=== PATIENT | male | born 1990 | race African-American/Black ===

== ENCOUNTER 2022-11-08 06:51 | Outpatient (OUT) | payer OTHER, SELFPAY ==
[2022-11-08 08:32] LABS: Estimated Average Glucose 189 mg/dL; Glycohemoglobin A1C 8.2 % (4.5-6.2)
[2022-11-08 08:37] LABS: Chol HDL Ratio 3.8; Cholesterol 143 mg/dL (<=200); HDL Cholesterol 38 mg/dL (40-60); Triglycerides 174 mg/dL (<=150); VLDL CHOLESTEROL 34.8 mg/dL
== END 2022-11-08 06:52 | disposition home or self-care (01) ==
LOC: LAB 06:55
PROVIDERS: PCP Internal Medicine; Visit Provider Internal Medicine
DX: E11.9 Type 2 diabetes mellitus without complications (principal); E78.5 Hyperlipidemia, unspecified
CPT/HCPCS: 36415; 80061; 83036

== ENCOUNTER 2023-03-05 08:20 | Emergency (ER) | payer OTHER, SELFPAY ==
[2023-03-05 08:28] VITALS: BP 125/84; PULSE 89; RESP 18; TEMP 36.7; O2SAT 99; BMI 30.7
--- NOTE | 2023-03-05 08:30 | XR_ITS ---
The [address] [address] Patient Name: MARCUS EASON MRN: [id number] date: 1990 Sex: M Assigned Patient Location: ER Current Patient Location: ER Accession/Order Number: [id number] Exam Date: 03/05/2023 08:38 Report Date: 03/05/2023 09:13 At the request of: VICKIE BARRIOS Procedure: XR wrist RT min 3V PROCEDURE: XR wrist RT min 3V COMPARISON: None. HISTORY: pain FINDINGS: BONES:Contour deformity of the distal ulna likely represents remote healed fracture resulting in a borderline ulnar minus variant. No acute fracture, dislocation or degenerative changes. SOFT TISSUES:Negative. No visible soft tissue swelling. EFFUSION:None visible. OTHER: Negative. XR/XR wrist RT min 3V IMPRESSION: No acute radiographic abnormality Electronically authenticated by: JAMES BOWERS Date: 03/05/2023 09:13
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
== END 2023-03-05 09:36 | disposition home or self-care (01) ==
PROVIDERS: Emergency Provider Emergency Medicine Emergency Medical Services; PCP Internal Medicine
DX: S63.501A Unspecified sprain of right wrist, initial encounter (principal); S66.911A Strain of unspecified muscle, fascia and tendon at wrist and hand level, right hand, initial encounter; V28.49XA Other motorcycle driver injured in noncollision transport accident in traffic accident, initial encounter
CPT/HCPCS: 73110; 99283

== ENCOUNTER 2023-04-01 07:20 | Emergency (ER) | payer OTHER, SELFPAY ==
[2023-04-01 07:23] VITALS: BP 140/88; PULSE 112; RESP 16; TEMP 37.6; O2SAT 98; BMI 31.6
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
--- NOTE | 2023-04-01 07:48 | XR_ITS ---
The [place] [id number] Patient Name: MARCUS EASON MRN: [id number] date: 1990 Sex: M Assigned Patient Location: ER Current Patient Location: ER Accession/Order Number: [id number] Exam Date: 04/01/2023 07:44 Report Date: 04/01/2023 08:04 At the request of: KETURAH RAMEY Procedure: XR soft tissue neck EXAMINATION: XR soft tissue neck HISTORY: FB sensation, left side ; feels like something stuck in throat COMPARISON: No relevant comparison available. FINDINGS: EPIGLOTTIS: Normal ARYEPIGLOTTIC FOLDS: Normal SUBGLOTTIC AIRWAY: Normal ADENOID TONSILS: Normal PALATINE TONSILS: Normal CERVICAL SPINE: Normal XR/XR soft tissue neck IMPRESSION: 1. No radiopaque foreign body. 2. No abnormal or suspicious findings to account for patient's symptoms. Electronically authenticated by: BLAZE RAMIREZ Date: 04/01/2023 08:04
== END 2023-04-01 08:29 | disposition home or self-care (01) ==
PROVIDERS: Emergency Provider Emergency Medicine; PCP Internal Medicine
DX: R09.A2 Foreign body sensation, throat (principal); Z79.84 Long term (current) use of oral hypoglycemic drugs
CPT/HCPCS: 70360; 99283

== ENCOUNTER 2023-04-05 15:34 | Outpatient (OUT) | payer OTHER, SELFPAY ==
--- NOTE | 2023-04-05 15:38 | XR_ITS ---
The [address] [address] Patient Name: MARCUS EASON MRN: [id number] date: 1990 Sex: M Assigned Patient Location: RAD Current Patient Location: Accession/Order Number: [id number] Exam Date: 04/05/2023 15:45 Report Date: 04/07/2023 23:08 At the request of: SHAIKH JEREMIAH Procedure: XR foot LT min 3V PROCEDURE: XR foot LT min 3V HISTORY: Left Foot Pain M79.672 ; medial arch pain COMPARISON: None. FINDINGS: BONES:No fracture, acute abnormality, or significant arthropathy. Tiny calcaneal plantar spur. SOFT TISSUES:No visible soft tissue swelling. EFFUSION:None visible. OTHER: Negative. XR/XR foot LT min 3V IMPRESSION: 1. No acute abnormality or significant degenerative changes. Electronically authenticated by: BLAZE RAMIREZ Date: 04/07/2023 23:08
--- NOTE | 2023-04-05 15:38 | XR_ITS ---
The [place] [id number] Patient Name: MARCUS EASON MRN: [id number] date: 1990 Sex: M Assigned Patient Location: RAD Current Patient Location: [facility] Accession/Order Number: [id number] Exam Date: 04/05/2023 15:45 Report Date: 04/08/2023 02:01 At the request of: SHAIKH JEREMIAH Procedure: XR wrist RT min 3V PROCEDURE: XR wrist RT min 3V HISTORY: Right Wrist Pain M25.531 COMPARISON: XR wrist right 03/05/2023 FINDINGS: BONES:No acute fracture or dislocation. Chronic, likely post traumatic changes of the distal ulna. Stable tiny round ossifications anterior to the proximal radial carpal joint, likely sequela of remote injury. SOFT TISSUES:No visible soft tissue swelling. EFFUSION:None visible. OTHER: Negative. XR/XR wrist RT min 3V IMPRESSION: 1. No acute bone abnormality. Stable wrist. Electronically authenticated by: BLAZE RAMIREZ Date: 04/08/2023 02:01
== END 2023-04-05 15:35 | disposition home or self-care (01) ==
LOC: RAD 15:34
PROVIDERS: PCP Internal Medicine; Visit Provider Internal Medicine
DX: M25.531 Pain in right wrist (principal); M79.672 Pain in left foot
CPT/HCPCS: 73110; 73630

== ENCOUNTER 2024-08-08 11:00 | Outpatient (OUT) | payer OTHER, SELFPAY ==
--- NOTE | 2024-08-08 | US_ITS ---
The [address] [address] Patient Name: MARCUS EASON MRN: [id number] date: 1990 Sex: M Assigned Patient Location: Current Patient Location: Accession/Order Number: [id number] Exam Date: 08/10/2024 09:43 Report Date: 08/10/2024 09:45 At the request of: JESUS BARRY NP Procedure: US scrotum SCROTAL ULTRASOUND WITH DUPLEX IMAGING CLINICAL DATA: Left testicular pain intermittently for the past few months. No injury. COMPARISON: None The right testis measures 4.8 x 3.4 x 1.6 cm . The left testis measures 4.5 x 3.2 x 2.0 cm. There is normal echogenicity. No intratesticular masses are identified. There is documentation of bilateral duplex and color Doppler testicular blood flow. The epididymal heads are similar in size. No hydrocele is seen. There are prominent vessels adjacent to the left testis with increased blood flow on Valsalva that may be varicocele. US/US scrotum IMPRESSION: NO INTRATESTICULAR MASS OR TORSION. SUSPECTED LEFT VARICOCELE. Impression dictated by: Erica Torres M.D.08/10/2024 9:45 AM Dictation Location: [place] [address] Electronically authenticated by: [id number] Y Date: 08/10/2024 09:45
--- OUTSIDE RECORDS SUMMARY | 2024-08-08 11:03 | XMS_ITS | CCD ---
Author Organization [facility] Care Team Providers Care Bioinformatics Support Specialist Name Role Phone FAWWAD, OCONNOR H Admitting Unavailable FAWWAD, OCONNOR H Attending Unavailable REQUEST, NONE LISTED Primary Care Unavaila ble FAWWAD, OCONNOR H Admitting Unavailable FAWWAD, OCONNOR H Attending Unavailable REQUEST, DR NONE LISTED Primary Care Unavaila ble FAWWAD, OCONNOR H Consulting Unavailable FAWWAD, OCONNOR H Admitting Unavailable FAWWAD, OCONNOR H Attending Unavailable FAWWAD, OCONNOR H Primary Care Unavailable FAWWAD, OCONNOR H Consulting Unavailable FAWWAD, OCONNOR H Admitting Unavailable FAWWAD, OCONNOR H Attending Unavailable FAWWAD, OCONNOR H Primary Care Unavailable FAWWAD, OCONNOR H Consulting Unavailable FAWWAD, OCONNOR H Admitting Unavailable FAWWAD, OCONNOR H Attending Unavailable FAWWAD, OCONNOR H Primary Care Unavailable FAWWAD, OCONNOR H Consulting Unavailable FAWWAD, OCONNOR H Primary Care Unavailable KETURAH RAMEY Admitting Unavailable KETURAH RAMEY Attending Unavailable KETURAH RAMEY Consulting Unavailable FAWWAD, OCONNOR H Primary Care Unavailable TORIE DORMAN Admitting Unavailable TORIE DORMAN Attending Unavailable TORIE DORMAN Consulting Unavailable REQUEST, NONE LISTED Primary Care Unavailbaljit DALTON, DR MARIANA Dior Consulting Unavailable SAMSA, MARIANELA Admitting Unavailable SAMSA, MARIANELA Attending Unavailable DR JOHN GAR Consulting Unavailable NILL, DR GOMEZ Consulting Unavailable SAMSA, MARIANELA Consulting Unavailable AGUBOSIM, MEME Consulting Unavailable DELL BACH Consulting Unavailable ELISEO BUTLER Consulting Unavailable John Gar MD Primary Care Provider [phone] Jeffery SILVICULTURE TEACHER, Ruby Unavailable [phone] Jeffery SILVICULTURE TEACHER, Ruby Unavailable RUBY GIL Attending Unavailabl e CATHERINE RICARDO Attending Unavailable Medications Current Medications Medication Drug Class(es) Dates Sig (Normalized) Sig (Original) carbamide peroxide 65 mg/ml otic solution (2 sources) Start: 01-13-2024 End: 01-17-2024 carbamide peroxide (Debrox) 6.5 % otic solution Indications: Cerumen debris on tympanic membrane of both ears Administer 3-5 drops into affected ear(s) in the morning and 3-5 drops before bedtime. Do all this for 4 days. 15 mL 01/13/2024 01/17/2024 Active glipiZIDE 5 mg oral tablet (11 sources) Sulfonylurea Start: 04-30-2023 End: 01-31-2025 take 1 tablet by mouth in the morning glipiZIDE (Glucotrol) 5 MG tablet Indications: Type 2 diabetes mellitus without complication, without long-term current use of insulin Take 1 tablet (5 mg) by mouth in the morning and 1 tablet (5 mg) in the evening. Take before meals. 180 tablet 08/04/2024 01/31/2025 Active metFORMIN hydrochloride 1000 mg oral tablet (11 sources) Biguanide Start: 05-01-2023 End: 01-31-2025 take 1 tablet by mouth in the morning metFORMIN (Glucophage) 1000 MG tablet Indications: Type 2 diabetes mellitus without complication, without long-term current use of insulin Take 1 tablet (1,000 mg) by mouth in the morning and 1 tablet (1,000 mg) in the evening. Take with meals. 180 tablet 08/04/2024 01/31/2025 Active Problems Active Problems Problem Classification Problem Date Documented Date Episodic/Chronic Acute and chronic tonsillitis (8 sources) Enlarged tonsil; Translations: [Hypertrophy of tonsils] Onset: 04-02-2023 04-02-2023 Chronic Acute and chronic tonsillitis (1 source) Acute tonsillitis, unspecified; Translations: [ACUTE TONSILLITIS UNSPECIFIED] Onset: 03-26-2022 Episodic Diabetes mellitus with complications (4 sources) Type 1 diabetes mellitus with other specified complication; Translations: [TYPE 1 DM W/OTHER SPEC COMPLICATION] Onset: 07-20-2021 Chronic Diabetes mellitus without complication (20 sources) Type 2 diabetes mellitus without complications; Translations: [Type 2 diabetes mellitus without complication] Onset: 07-14-2021 Chronic Disorders of lipid metabolism (8 sources) Mixed hyperlipidemia; Translations: [Mixed hyperlipidemia] Onset: 04-02-2023 04-02-2023 Chronic Noninfectious gastroenteritis (4 sources) Noninfective gastroenteritis and colitis, unspecified; Translations: [NONINFECTIVE GE AND COLITIS UNS] Onset: 01-10-2022 Episodic Other aftercare (1 source) Other long-term (current) drug therapy; Translations: [OTH FPC CURRENT DRUG THERAPY] Onset: 03-19-2022 Episodic Other aftercare (1 source) 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; Translations: [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 DX] Onset: 03-19-2022 Episodic Other connective tissue disease (5 sources) Pain in left lower limb; Translations: [Pain in left leg] Onset: 08-04-2024 08-04-2024 Episodic Other ear and sense organ disorders (2 sources) Excessive cerumen in ear canal ; Translations: [Impacted cerumen, bilateral] 01-13-2024 Episodic Other upper respiratory infections (4 sources) Acute pharyngitis, unspecified; Translations: [ACUTE PHARYNGITIS UNSPECIFIED] Onset: 03-19-2022 Episodic Screening and history of mental health and substance abuse codes (1 source) Personal history of nicotine dependence; Translations: [PERSONAL HISTORY OF NICOTINE DEPEND] Onset: 03-26-2022 Episodic Unclassified (1 source) CONTACT W/AND (SUSP) EXPOS COVID-19; Translations: [CONTACT W/AND (SUSP) EXPOS COVID-19] Onset: 07-14-2021 Past or Other Problems Problem Classification Problem Date Documented Da te Episodic/Chronic Other connective tissue disease (8 sources) Pain in left foot; Translations: [Pain in left foot] Onset: 04-02-2023 04-02-2023 Episodic Other ear and sense organ disorders (6 sources) Impacted cerumen; Translations: [Impacted cerumen, unspecified ear] Onset: 01-13-2024 01-13-2024 Episodic Other gastrointestinal disorders (3 sources) Dysphagia, unspecified; Translations: [DYSPHAGIA UNSPECIFIED] Onset: 07-11-2021 Episodic Other injuries and conditions due to external causes (1 source) Food in esophagus causing other injury, initial encounter; Translations: [FOOD ESOPH CAUS OTH INJURY INIT ENC] Onset: 07-14-2021 Episodic Other lower respiratory disease (4 sources) Shortness of breath; Translations: [SHORTNESS OF BREATH] Onset: 09-20-2021 Episodic Other male genital disorders (10 sources) Pain of left testicle; Translations: [Left testicular pain] Onset: 01-13-2024 01-13-2024 Episodic Other male genital disorders (8 sources) Hemospermia; Translations: [Hematospermia] Onset: 01-13-2024 01-13-2024 Episodic Other non-traumatic joint disorders (8 sources) Pain of right wrist; Translations: [Pain in right wrist] Onset: 04-02-2023 04-02-2023 Episodic Other screening for suspected conditions (not mental disorders or infectious disease) (1 source) Encounter for screening for lipoid disorders; Translations: [ENC SCREENING FOR LIPOID DISORDERS] Onset: 12-02-2021 Episodic Results Test Name Value Interpretation Reference Range Facility HbA1c (Bld) [Mass fraction]o n 08-04-2024 Interpretation and review of laboratory results Abnormal [facility] - Hematology and Cell countson 08-04-2024 HbA1c (Bld) [Mass fraction] % [facility] GROUP A STREP CULTUREon 02-27 S. pyogenes Ag Ql (Unsp spec) Culture Observations: NEGATIVE FOR GROUP A STREPTOCOCCUS. Normal [facility] Comment on above: Performed By: #### P OCGLUC #### [facility] [address] [address] [address] Joe Borrego STREPT SCREENon 03-15-2022 STREP SCREEN A Negative Normal NEGATIVE [facility] Comment on above: Performed By: #### P T, PTT #### [facility] [address] [address] [address] Joe Borrego GI PANEL (PCR)on 01-09-2022 Adenovirus F 40/41 Not detected Normal NOT DETECTED [facility] Comment on above: Performed By: #### G IPANEL #### [facility] [address] [place] [address] Dr. Joe Borrego Astrovirus Not detected Normal NOT DETECTED [facility] Comment on above: Performed By: #### G IPANEL #### [facility] [address] [place] [address] Dr. Joe Borrego C. Diff toxin A/B Not detected Normal NOT DETECTED [facility] Comment on above: Performed By: #### G IPANEL #### [facility] [address] [place] [address] Dr. Joe Borrego Campylobacter Not detected Normal NOT DETECTED [facility] Comment on above: Performed By: #### G IPANEL #### [facility] [address] [place] [address] Dr. Joe Borrego Cryptosporidium Not detected Normal NOT DETECTED [facility] Comment on above: Performed By: #### G IPANEL #### [facility] [address] [place] [address] Dr. Joe Borrego Cyclos. Cayetanensis Not detected Normal NOT DETECTED [facility] Comment on above: Performed By: #### G IPANEL #### [facility] [address] [place] [address] Dr. Joe Borrego E. Coli O157 Not Applicable Normal Not Applicable [facility] Comment on above: Performed By: #### G IPANEL #### [facility] [address] [place] [address] Dr. Joe Borrego E. histolytica Not detected Normal NOT DETECTED [facility] Comment on above: Performed By: #### G IPANEL #### [facility] [address] [place] [address] Dr. Joe Borrego EAEC Not detected Normal NOT DETECTED [facility] Comment on above: Performed By: #### G IPANEL #### [facility] [address] [place] [address] Dr. Joe Borrego EIEC Not detected Normal NOT DETECTED [facility] Comment on above: Performed By: #### G IPANEL #### [facility] [address] [place] [address] Dr. Joe Borrego EPEC Not detected Normal NOT DETECTED [facility] Comment on above: Performed By: #### G IPANEL #### [facility] [address] [place] [address] Dr. Joe Borrego ETEC Not detected Normal NOT DETECTED [facility] Comment on above: Performed By: #### G IPANEL #### [facility] [address] [address] [address] Joe Le Lamblia Not detected Normal NOT DETECTED [facility] Comment on above: Performed By: #### G IPANEL #### [facility] [address] [place] [address] Dr. Joe BARDALES CONTROLS PASSED Normal The [facility] Comment on above: Performed By: #### G IPANEL #### [facility] [address] [place] [address] Dr. Joe RUIZ HEADER GI PANEL BACTERIA Normal [facility] Comment on above: Performed By: #### G IPANEL #### [facility] [address] [place] [address] Dr. Joe RODRIGUEZ ECOLI GI PANEL DIARRHEAGENIC E.COLI / SHIGELLA Normal [facility] Comment on above: Performed By: #### G IPANEL #### [facility] [address] [place] [address] Dr. Joe RODRIGUEZ INFO SEE BELOW Normal [facility] Comment on above: Result Comment: EAEC - Enteroaggregative E. Coli EPEC- Enteropathogenic E. Coli ETEC- Enterotoxigenic E. Coli lt/st STEC- Shigella-like toxin-producing E. Coli stx1/stx2 EIEC- Shigella/Enteroinvasive E. Coli Performed By: #### G IPANEL #### [facility] [address] [place] [address] Dr. Joe RODRIGUEZ PARASITES GI PANEL PARASITES Normal [facility] Comment on above: Performed By: #### G IPANEL #### [facility] [address] [place] [address] Dr. Joe RODRIGUEZ VIRUS GI PANEL VIRUSES Normal [facility] Comment on above: Performed By: #### G IPANEL #### [facility] [address] [place] [address] Dr. Joe Borrego Norovirus GI/GII Not detected Normal NOT DETECTED [facility] Comment on above: Performed By: #### G IPANEL #### [facility] [address] [place] [address] Dr. Joe Borrego P. Shigelloides Not detected Normal NOT DETECTED [facility] Comment on above: Performed By: #### G IPANEL #### [facility] [address] [place] [address] Dr. Joe Borrego Rotavirus A Not detected Normal NOT DETECTED [facility] Comment on above: Performed By: #### G IPANEL #### [facility] [address] [place] [address] Dr. Joe Borrego Salmonella Not detected Normal NOT DETECTED [facility] Comment on above: Performed By: #### G IPANEL #### [facility] [address] [place] [address] Dr. Joe Borergo Sapovirus Not detected Normal NOT DETECTED [facility] Comment on above: Performed By: #### G IPANEL #### [facility] [address] [place] [address] Dr. Joe Borrego STEC Not detected Normal NOT DETECTED [facility] Comment on above: Performed By: #### G IPANEL #### [facility] [address] [place] [address] Dr. Joe Borrego Vibrio Not detected Normal NOT DETECTED [facility] Comment on above: Performed By: #### G IPANEL #### [facility] [address] [place] [address] Dr. Joe Borrego Vibrio Cholera Not detected Normal NOT DETECTED [facility] Comment on above: Performed By: #### G IPANEL #### [facility] [address] [place] [address] Dr. Joe Borrego Y. Enterocolitica Not detected Normal NOT DETECTED [facility] Comment on above: Performed By: #### G IPANEL #### [facility] [address] [address] [address] Joe Borrego GLYCOHEMOGLOBIN A1Con 2021 ADA RECOMMENDATION SEE BELOW Normal [facility] Comment on above: Result Comment: ADA RECOMMENDED LIMIT 4.0 - 6.0 ADA THERAPEUTIC TARGET < 7.0 ACTION SUGGESTED > 7.0 Performed By: #### P OCGLUC #### [facility] [address] [address] [address] Joe Borrego Glucose [Mass/Vol] 180 mg/dL Normal [facility] Comment on above: Performed By: #### P OCGLUC #### [facility] [address] [address] [address] Joe Borrego HbA1c (Bld) [Mass fraction] 7.9 % Critically high 4.5-6.2 [facility] Comment on above: Performed By: #### P OCGLUC #### [facility] [address] [place] [address] Dr. Joe Borrego LIPID PROFILEon 11-29-2021 CHOL-HDL RATIO NORM SEE BELOW Normal [facility] Comment on above: Result Comment: 3.3 - 4.4 LOW RISK 4.4 - 7.1 AVERAGE RISK 7.1 - 11.0 MODERATE RISK >11.0 HIGH RISK Performed By: #### P T, PTT #### [facility] [address] [place] [address] Dr. Joe Borrego Cholesterol [Mass/Vol] 144 mg/dL Normal <=200 [facility] Comment on above: Performed By: #### P T, PTT #### [facility] [address] [place] [address] Dr. Joe Borrego Cholesterol in HDL [Mass/Vol] 34 mg/dL Critically low 40-60 [facility] Comment on above: Performed By: #### P T, PTT #### [facility] [address] [place] [address] Dr. Joe Borrego Cholesterol in LDL [Mass/Vol] 75.0 mg/dL Normal [facility] Comment on above: Performed By: #### P T, PTT #### [facility] [address] [address] [address] Joe Borrego Cholesterol.total/Ch olesterol in HDL [Mass ratio] 4.2 {ratio} Normal [facility] Comment on above: Performed By: #### P T, PTT #### [facility] [address] [place] [address] Dr. Joe Borrego HDL NORMAL > or = 60 mg/dl - LO W CARDIOVASCULAR RISK <40 mg/dl - HIGH CARDIOVASCULAR RISK Normal [facility] Comment on above: Performed By: #### P T, PTT #### [facility] [address] [address] [address] Joe Borrego LDL CALC NORMAL SEE BELOW Normal [facility] Comment on above: Result Comment: <100 mg/dl OPTIMAL 100 - 129 mg/dl NEAR OR ABOVE OPTIMAL 130 - 159 mg/dl BORDERLINE HIGH 160 - 189 mg/dl HIGH >190 mg/dl VERY HIGH Performed By: #### P T, PTT #### [facility] [address] [address] [address] Joe Borrego Triglyceride [Mass/Vol] 175 mg/dL Critically high <=150 [facility] Comment on above: Performed By: #### P T, PTT #### [facility] [address] [place] [address] Dr. Joe Borrego VLDL CALC 35.0 mg/dL Normal [facility] Comment on above: Performed By: #### P T, PTT #### [facility] [address] [place] [address] Dr. Joe Borrego ECHOCARDIO M/2D COMPLETEon 0 09-19-2021 ECHOCARDIO M/2D COMPLETE Patient: VIC EASON Exam Date: 09/19/2021 : 1990 Gender:M Ordering : SHAIKH Karine DANIELS . Admission #: [id number] Family : Order #: [id number] CLICK HERE TO VIEW EXAM ECHOCARDIOGRAM REPORT PROCEDURE: CARDIO PULMONARY ECHOCARDIO M/2D COMP INDICATIONS: Shortness of breath COMPARISON: None. DESCRIPTION: COMPLETE ECHOCARDIOGRAM Real-time transthoracic echocardiography with 2D, M-mode, spectral and color flow Doppler performed. QUALITY: Technical quality was good. LEFT VENTRICLE: Normal chamber size. Normal left ventricular wall thickness. LV EF: Normal left ventricular ejection fraction, (>55%). DIASTOLIC: Normal diastolic function. ATRIAL SEPTUM: Visually appears intact. LEFT ATRIUM: Normal chamber size. RIGHT ATRIUM: Normal chamber size. RIGHT VENTRICLE: Normal chamber size. Normal right ventricular systolic function. TRICUSPID VALVE: Normal mobility and thickness. No stenosis with mild regurgitation. No evidence of pulmonary hypertension. RVSP 29 mmHg MITRAL VALVE: Normal mobility and thickness. No evidence of mitral valve stenosis. There is no mitral annular calcification. Trivial mitral regurgitation. AORTIC VALVE: Normal trileaflet appearance. No visible sclerosis. Normal leaflet mobility. No evidence of aortic valve stenosis. No aortic regurgitation. AORTIC ROOT: Normal diameter and appearance. PULMONIC VALVE: Normal thickness and mobility. No stenosis. Trivial regurgitation. PERICARDIUM: No evidence of pericardial effusion. IVC: IVC is normal in size. PLEURA: CONCLUSION: 1. Normal ventricular function. LVEF is 60%. 2. No significant valvular dysfunction. 3. Normal right-sided pressures. 4. No pericardial effusion. Adult Echocardiography Procedure Report Left Ventricle LVEDD (3.7 - 5.6 cm): 4.56 cm LVESD (2.2 - 4.0 cm): 3.00 cm LVIVS thickness (0.6 - 1.2 cm): 1.04 cm LVPW thickness (0.5 - 1.0 cm): 7.41 mm e': 19.70 cm/s E - e': 3.10 LVOT Area (cm2): 4.15 cm2 LVOT Diameter 2.30 cm Left Ventricular Ejection Fraction: 60 % Left Atrium LA Volume Index (2D A2C): 22 ml/m2 Left Atrium Systolic Dimension: 3.80 cm Left Atrium Systolic Area(A2C): 15.60 cm2 Left Atrium Systolic Area(A4C): 14.70 cm2 Left Atrium Systolic Volume(A2C): 70411 mm3 Left Atrium Systolic Volume(A4C): 43157 mm3 Mitral Valve MV E to A Ratio: 1.20 Mitral Valve A-Wave Peak Velocity: 51.30 cm/s Mitral Valve E-Wave Peak Velocity: 61.20 cm/s Deceleration Time: 351 ms Right Ventricle Aorta AO Root Diam: 3.30 cm Aortic Valve AoV Area (Peak Yannick): 3.83 cm2 Peak Velocity(Antegrade Flow): 86.10 cm/s Peak Gradient(Antegrade Flow): 3 mm[Hg] Tricuspid Valve Peak Velocity (Regurgitant Flow): 194.00 cm/s Pulmonic Valve Peak Velocity: 96.50 cm/s Peak Gradient: 4 mm[Hg] Right Atrium Dictated by: Jean-Pierre Garrison M.D. on 09/19/2021 at 17:15 Approved by: Jean-Pierre Garrison M.D. on 09/19/2021 at 17:17 Normal [facility] INSULIN FREE AND TOTALon Free Insulin 4.8 uU/mL Normal [facility] Comment on above: Result Comment: Refe rence Range: Pubertal Children and Adults (fasting): 0 - 17 Performed By: #### P OCGLUC #### [facility] [address] [place] [address] Dr. Joe Borrego Total Insulin 5.0 uU/mL Normal [facility] Comment on above: Result Comment: Non- Diabetic: In the absence of insulin- binding antibodies, the free and total insulin assays are equivalent. However, this assay is intended for use in diabetics with insulin autoantibody present. Measurement is performed on acid-treated samples and, therefore, the sensitivity and absolute values by this method may differ from our direct insulin ICMA. Insulin Dependent Diabetic Patients: Free Insulin levels vary depending on the capacity and affinity of circulating insulin-binding antibodies and the dose of insulin given to the patient. Total insulin levels represent free insulin and antibody bound insulin fractions. This test was developed and its performance characteristics determined by [facility]. It has not been cleared or approved by the Food and Drug Administration. Performed By: #### P OCGLUC #### [facility] [address] [address] [address] Joe Borrego INSULIN AUTOANTIBODIESon Insulin Antibodies <5.0 Normal [facility] Comment on above: Result Comment: This test is also known as insulin autoantibody or IAA. This test was developed and its performance characteristics determined by [facility]. It has not been cleared or approved by the Food and Drug Administration. Reference Range: <5.0 Negative > or = 5.0 Positive Performed By: #### P T, PTT #### [facility] [address] [address] [address] Joe Borrego GLUTAMIN ACID DECARBOXYLASE (DAINA)on 07-22-2021 DAINA-65 <5.0 Normal 0.0-5.0 [facility] Comment on above: Performed By: #### P T, PTT #### [facility] [address] [address] [address] Joe Borrego ANTIPANCREATIC ISLET CELLSon 07-21-2021 IMMUNOFIXATION RESULT Comment Normal [facility] Comment on above: Result Comment: No m onoclonality detected. Performed By: #### P T, PTT #### [facility] [address] [address] [address] Joe Borreog Immunoglobulin A, Qn, Serum 247 mg/dL Normal 90-386 [facility] Comment on above: Performed By: #### P T, PTT #### [facility] [address] [place] [address] Dr. Joe Borrego Immunoglobulin G, Qn, Serum 1259 mg/dL Normal [id number] [facility] Comment on above: Performed By: #### P T, PTT #### [facility] [address] [address] [address] Joe Borrego Immunoglobulin M, Qn, Serum 118 mg/dL Normal 20-172 [facility] Comment on above: Performed By: #### P T, PTT #### [facility] [address] [address] [address] Joe Borrego Consultation Noteon 07-14-19 22 Consultation Note [id number]:127 Normal [facility] Operative Reporton 2 Operative Report [id number]:127 Normal [facility] POINT OF CARE GLUCOSEon 06-27 Glucose [Mass/Vol] 275 mg/dL Critically high 74-106 [facility] Comment on above: Performed By: #### P OCGLUC #### [facility] [address] [place] [address] Dr. Joe Borrego Glucose [Mass/Vol] 283 mg/dL Critically high 74-106 T he [facility] Comment on above: Performed By: #### P OCGLUC #### [facility] [address] [place] [address] Dr. Joe Borrego CBC AUTO DIFFon 07-11-2021 BASO # 0.0 103/ul Normal 0.0-0.1 [facility] Comment on above: Performed By: #### C BC #### [facility] [address] [place] [address] Dr. Joe Borrego Basophils/100 WBC (Bld) 0.5 % Normal 0.2-2.0 [facility] Comment on above: Performed By: #### C BC #### [facility] [address] [place] [address] Dr. Joe Borrego EO # 0.1 103/ul Normal 0.0-0.7 [facility] Comment on above: Performed By: #### C BC #### [facility] [address] [place] [address] Dr. Joe Borrego Eosinophils/100 WBC (Bld) 1.5 % Normal 0.9-7.0 [facility] Comment on above: Performed By: #### C BC #### [facility] [address] [place] [address] Dr. Joe Borrego Erythrocyte distribution width (RBC) [Ratio] 13.0 % Normal 11.0-15.0 [facility] Comment on above: Performed By: #### C BC #### [facility] [address] [place] [address] Dr. Joe Borrego Hematocrit (Bld) [Volume fraction] 40.7 % Critically low 42.0-54.0 [facility] Comment on above: Performed By: #### C BC #### [facility] [address] [place] [address] Dr. Joe Borrego Hemoglobin (Bld) [Mass/Vol] 13.2 g/dL Critically low 14.0-18.0 [facility] Comment on above: Performed By: #### C BC #### [facility] [address] [place] [address] Dr. Joe Borrego IG # 0.02 10e3/ul Normal 0.00-0.03 [facility] Comment on above: Performed By: #### C BC #### [facility] [address] [place] [address] Dr. Joe Borrego IG % 0.3 % Normal 0.0-0.5 [facility] Comment on above: Performed By: #### C BC #### [facility] [address] [place] [address] Dr. Joe Borrego LYMPH # 3.0 103/ul Normal 1.2-3.8 [facility] Comment on above: Performed By: #### C BC #### [facility] [address] [place] [address] Dr. Joe Borrego Lymphocytes/100 WBC (Bld) 37.0 % Normal 20.5-60.0 [facility] Comment on above: Performed By: #### C BC #### [facility] [address] [place] [address] Dr. Joe Borrego MANUAL DIFF REQ NO Normal [facility] Comment on above: Performed By: #### C BC #### [facility] [address] [place] [address] Dr. Joe Borrego MCH (RBC) [Entitic mass] 28.4 pg Normal 25.9-34.0 [facility] Comment on above: Performed By: #### C BC #### [facility] [address] [place] [address] Dr. Joe Borrego MCHC (RBC) [Mass/Vol] 32.4 g/dL Normal 29.9-35.2 [facility] Comment on above: Performed By: #### C BC #### [facility] [address] [place] [address] Dr. Joe Borrego MCV (RBC) [Entitic vol] 87.7 fL Normal 80.0-94.0 [facility] Comment on above: Performed By: #### C BC #### [facility] [address] [place] [address] Dr. Joe Borrego MONO # 0.9 103/ul Critically high 0.3-0.8 [facility] Comment on above: Performed By: #### C BC #### [facility] [address] [place] [address] Dr. Joe Borrego Monocytes/100 WBC (Bld) 10.9 % Normal 1.7-12.0 [facility] Comment on above: Performed By: #### C BC #### [facility] [address] [place] [address] Dr. Joe Borrego NEUT # 4.0 103/ul Normal 1.4-6.5 [facility] Comment on above: Performed By: #### C BC #### [facility] [address] [place] [address] Dr. Joe Borrego Neutrophils/100 WBC (Bld) 49.8 % Normal 43.0-75.0 [facility] Comment on above: Performed By: #### C BC #### [facility] [address] [place] [address] Dr. Joe Borrego Platelet mean volume (Bld) [Entitic vol] 11.6 fL Normal 9.5-13.5 [facility] Comment on above: Performed By: #### C BC #### [facility] [address] [place] [address] Dr. Joe Borrego PLT 294 103/ul Normal 150-450 [facility] Comment on above: Performed By: #### C BC #### [facility] [address] [place] [address] Dr. Joe Borrego RBC 4.64 106/ul Critically low 4.70-6.10 [facility] Comment on above: Performed By: #### C BC #### [facility] [address] [place] [address] Dr. Joe Borrego WBC 8.0 103/ul Normal 4.0-11.0 [facility] Comment on above: Performed By: #### C BC #### [facility] [address] [place] [address] Dr. Joe Borrego Covid-19 PCR ([facility])on 06-27 SARS-CoV-2 (COVID-19) RNA ASHWIN+probe Ql (Unsp spec) Not detected Normal NOT DETECTED [facility] Comment on above: Result Comment: When diagnostic testing is negative, the possibility of a false negative should be considered in the context of a patient's recent exposures and the presence of clinical signs and symptoms consistent with SARS-CoV-2. This test is not yet approved or cleared by the [place] Food and Drug Administration (FDA). This test was developed by [employer], [place], [place]. The performance characteristics of this test were validated by [facility]. The results are not intended to be used as the sole means for clinical diagnosis or patient management decisions. [facility] is authorized under Clinical Laboratory Improvement Amendments (CLIA) to perform high- complexity testing. This test is not yet approved or cleared by the [place] FDA. When there are no FDA-approved or cleared tests available, and other criteria are met, FDA can make tests available under an emergency access mechanism called an Emergency Use Authorization (EUA). The EUA for this test is supported by the Turn Operator of Health and Human Service's declaration that circumstances exist to justify the emergency use of in vitro diagnostics for the detection and/or diagnosis of the virus that causes COVID-19. This EUA will remain in effect for the duration of the COVID-19 declaration justifying emergency of IVDs, unless it is terminated or revoked by the FDA (after which the test may no longer be used). Performed By: #### P T, PTT #### [facility] [address] [place] [address] Dr. Joe Borrego GLYCOHEMOGLOBIN A1Con 2021 ADA RECOMMENDATION ADA THERAPEUTIC TARGET 6.0 - 7.0 ACTION SUGGESTED > 7.0 Normal [facility] Comment on above: Performed By: #### P T, PTT #### [facility] [address] [place] [address] Dr. Joe Borrego Glucose [Mass/Vol] 332 mg/dL Normal [facility] Comment on above: Performed By: #### P T, PTT #### [facility] [address] [place] [address] Dr. Joe Borrego HbA1c (Bld) [Mass fraction] 13.2 % Critically high <=6.0 [facility] Comment on above: Performed By: #### P T, PTT #### [facility] [address] [address] [address] Joe Borrego POINT OF CARE GLUCOSEon 06-27 Glucose [Mass/Vol] 138 mg/dL Critically high [address] [place] [address] Comment on above: Performed By: #### P OCGLUC #### [facility] [address] [address] [address] Joe Borrego Glucose [Mass/Vol] 276 mg/dL Critically high [address] [place] [address] Comment on above: Performed By: #### P OCGLUC #### [facility] [address] [address] [address] Joe Borrego Glucose [Mass/Vol] 170 mg/dL Critically high [address] [place] [address] Comment on above: Performed By: #### P OCGLUC #### [facility] [address] [address] [address] Joe Borrego Glucose [Mass/Vol] 277 mg/dL Critically high [address] [place] [address] Comment on above: Performed By: #### P OCGLUC #### [facility] [address] [address] [address] Joe Borrego Glucose [Mass/Vol] 327 mg/dL Critically high [address] [place] [address] Comment on above: Performed By: #### P OCGLUC #### [facility] [address] [address] [address] Joe Borrego Glucose [Mass/Vol] 347 mg/dL Critically high [address] [place] [address] Comment on above: Performed By: #### P OCGLUC #### [facility] [address] [address] [address] Joe Borrego Glucose [Mass/Vol] 361 mg/dL Critically high [address] [place] [address] Comment on above: Performed By: #### P OCGLUC #### [facility] [address] [address] [address] Joe Borrego PROF CHEM 8 (BAS METB)on Anion gap [Moles/Vol] 13.3 mmol/L Normal [facility] Comment on above: Performed By: #### P T, PTT #### [facility] [address] [place] [address] Dr. Joe Borrego Calcium [Mass/Vol] 8.6 mg/dL Normal 8.4-10.2 [facility] Comment on above: Performed By: #### P T, PTT #### [facility] [address] [address] [address] Joe Borrego Chloride [Moles/Vol] 102 mmol/L Normal 98-107 [facility] Comment on above: Performed By: #### P T, PTT #### [facility] [address] [place] [address] Dr. Joe Borrego CO2 [Moles/Vol] 26.3 mmol/L Normal 22.0-30.0 [facility] Comment on above: Performed By: #### P T, PTT #### [facility] [address] [place] [address] Dr. Joe Borrego Creatinine [Mass/Vol] 1.10 mg/dL Normal 0.66-1.25 [facility] Comment on above: Performed By: #### P T, PTT #### [facility] [address] [place] [address] Dr. Joe Borrego EGFR-AF SLOVENIAN >60 Normal >=60 [facility] Comment on above: Performed By: #### P T, PTT #### [facility] [address] [place] [address] Dr. Joe Borrego EGFR-NON AF SLOVENIAN >60 Normal >=60 [facility] Comment on above: Performed By: #### P T, PTT #### [facility] [address] [place] [address] Dr. Joe Borrego Glucose [Mass/Vol] 357 mg/dL Critically high 74-106 [facility] Comment on above: Performed By: #### P T, PTT #### [facility] [address] [place] [address] Dr. Joe Borrego Potassium [Moles/Vol] 3.6 mmol/L Normal 3.4-5.0 [facility] Comment on above: Performed By: #### P T, PTT #### [facility] [address] [place] [address] Dr. Joe Borrego Sodium [Moles/Vol] 138 mmol/L Normal 137-145 [facility] Comment on above: Performed By: #### P T, PTT #### [facility] [address] [place] [address] Dr. Joe Borrego Urea nitrogen [Mass/Vol] 10.0 mg/dL Normal 9.0-20.0 [facility] Comment on above: Performed By: #### P T, PTT #### [facility] [address] [place] [address] Dr. Joe Borrego Urea nitrogen/Creatinine [Mass ratio] 9.1 mg/mg Normal [facility] Comment on above: Performed By: #### P T, PTT #### [facility] [address] [place] [address] Dr. Joe Borrego CBC AUTO DIFFon 07-10-2021 BASO # 0.0 103/ul Normal 0.0-0.1 [facility] Comment on above: Performed By: #### P T, PTT #### [facility] [address] [place] [address] Dr. Joe Borrego Basophils/100 WBC (Bld) 0.5 % Normal 0.2-2.0 [facility] Comment on above: Performed By: #### P T, PTT #### [facility] [address] [place] [address] Dr. Joe Borrego EO # 0.0 103/ul Normal 0.0-0.7 [facility] Comment on above: Performed By: #### P T, PTT #### [facility] [address] [place] [address] Dr. Joe Borrego Eosinophils/100 WBC (Bld) 0.5 % Critically low 0.9-7.0 [facility] Comment on above: Performed By: #### P T, PTT #### [facility] [address] [place] [address] Dr. Joe Borrego Erythrocyte distribution width (RBC) [Ratio] 12.8 % Normal 11.0-15.0 [facility] Comment on above: Performed By: #### P T, PTT #### [facility] [address] [place] [address] Dr. Joe Borrego Hematocrit (Bld) [Volume fraction] 44.2 % Normal 42.0-54.0 [facility] Comment on above: Performed By: #### P T, PTT #### [facility] [address] [place] [address] Dr. Joe Borrego Hemoglobin (Bld) [Mass/Vol] 14.4 g/dL Normal 14.0-18.0 [facility] Comment on above: Performed By: #### P T, PTT #### [facility] [address] [place] [address] Dr. Joe Borrego IG # 0.03 10e3/ul Normal 0.00-0.03 [facility] Comment on above: Performed By: #### P T, PTT #### [facility] [address] [place] [address] Dr. Joe Borrego IG % 0.3 % Normal 0.0-0.5 [facility] Comment on above: Performed By: #### P T, PTT #### [facility] [address] [place] [address] Dr. Joe Borrego LYMPH # 3.0 103/ul Normal 1.2-3.8 [facility] Comment on above: Performed By: #### P T, PTT #### [facility] [address] [place] [address] Dr. Joe Borrego Lymphocytes/100 WBC (Bld) 34.2 % Normal 20.5-60.0 [facility] Comment on above: Performed By: #### P T, PTT #### [facility] [address] [place] [address] Dr. Joe Borrego MANUAL DIFF REQ NO Normal [facility] Comment on above: Performed By: #### P T, PTT #### [facility] [address] [place] [address] Dr. Joe Borrego MCH (RBC) [Entitic mass] 28.2 pg Normal 25.9-34.0 [facility] Comment on above: Performed By: #### P T, PTT #### [facility] [address] [place] [address] Dr. Joe Borrego MCHC (RBC) [Mass/Vol] 32.6 g/dL Normal 29.9-35.2 [facility] Comment on above: Performed By: #### P T, PTT #### [facility] [address] [place] [address] Dr. Joe Borrego MCV (RBC) [Entitic vol] 86.7 fL Normal 80.0-94.0 [facility] Comment on above: Performed By: #### P T, PTT #### [facility] [address] [place] [address] Dr. Joe Borrego MONO # 0.9 103/ul Critically high 0.3-0.8 [facility] Comment on above: Performed By: #### P T, PTT #### [facility] [address] [place] [address] Dr. Joe Borrego Monocytes/100 WBC (Bld) 10.3 % Normal 1.7-12.0 [facility] Comment on above: Performed By: #### P T, PTT #### [facility] [address] [place] [address] Dr. Joe Borrego NEUT # 4.8 103/ul Normal 1.4-6.5 [facility] Comment on above: Performed By: #### P T, PTT #### [facility] [address] [place] [address] Dr. Joe Borrego Neutrophils/100 WBC (Bld) 54.2 % Normal 43.0-75.0 [facility] Comment on above: Performed By: #### P T, PTT #### [facility] [address] [place] [address] Dr. Joe Borrego Platelet mean volume (Bld) [Entitic vol] 12.0 fL Normal 9.5-13.5 [facility] Comment on above: Performed By: #### P T, PTT #### [facility] [address] [place] [address] Dr. Joe Borrego PLT 331 103/ul Normal 150-450 [facility] Comment on above: Performed By: #### P T, PTT #### [facility] [address] [place] [address] Dr. Joe Borrego RBC 5.10 106/ul Normal 4.70-6.10 [facility] Comment on above: Performed By: #### P T, PTT #### [facility] [address] [place] [address] Dr. Joe Borrego WBC 8.9 103/ul Normal 4.0-11.0 [facility] Comment on above: Performed By: #### P T, PTT #### [facility] [address] [place] [address] Dr. Joe Borrego PROF 14(COMP METB)on 022 Albumin [Mass/Vol] 4.5 g/dL Normal 3.5-5.0 [facility] Comment on above: Performed By: #### P T, PTT #### [facility] [address] [place] [address] Dr. Joe Borrego Albumin/Globulin [Mass ratio] 1.0 {ratio} Normal [facility] Comment on above: Performed By: #### P T, PTT #### [facility] [address] [place] [address] Dr. Joe Borrego ALP [Catalytic activity/Vol] 86 U/L Normal 38-126 [facility] Comment on above: Performed By: #### P T, PTT #### [facility] [address] [place] [address] Dr. Joe Borrego ALT [Catalytic activity/Vol] 33 U/L Normal 21-72 [facility] Comment on above: Performed By: #### P T, PTT #### [facility] [address] [place] [address] Dr. Joe Borrego Anion gap [Moles/Vol] 14.4 mmol/L Normal [facility] Comment on above: Performed By: #### P T, PTT #### [facility] [address] [address] [address] Joe Borrego AST [Catalytic activity/Vol] 11 U/L Critically low 17-59 [facility] Comment on above: Performed By: #### P T, PTT #### [facility] [address] [address] [address] Joe Borrego Bilirubin [Mass/Vol] 0.7 mg/dL Normal 0.2-1.3 [facility] Comment on above: Performed By: #### P T, PTT #### [facility] [address] [address] [address] Joe Borrego Calcium [Mass/Vol] 9.7 mg/dL Normal 8.4-10.2 [facility] Comment on above: Performed By: #### P T, PTT #### [facility] [address] [place] [address] Dr. Joe Borrego Chloride [Moles/Vol] 96 mmol/L Critically low 98-107 [facility] Comment on above: Performed By: #### P T, PTT #### [facility] [address] [place] [address] Dr. Joe Borrego CO2 [Moles/Vol] 29.5 mmol/L Normal 22.0-30.0 [facility] Comment on above: Performed By: #### P T, PTT #### [facility] [address] [place] [address] Dr. Joe Borrego Creatinine [Mass/Vol] 1.38 mg/dL Critically high 0.66-1.25 [facility] Comment on above: Performed By: #### P T, PTT #### [facility] [address] [place] [address] Dr. Joe Borrego EGFR-AF SLOVENIAN >60 Normal >=60 [facility] Comment on above: Performed By: #### P T, PTT #### [facility] [address] [place] [address] Dr. Joe Borrego EGFR-NON AF SLOVENIAN 60 mL/min/1.73m2 Normal >=60 [facility] Comment on above: Performed By: #### P T, PTT #### [facility] [address] [address] [address] Joe Borrego Globulin (S) [Mass/Vol] 4.6 g/dL Normal [facility] Comment on above: Performed By: #### P T, PTT #### [facility] [address] [address] [address] Joe Borrego Glucose [Mass/Vol] 476 mg/dL Critically high 74-106 [facility] Comment on above: Performed By: #### P T, PTT #### [facility] [address] [address] [address] oJe Borrego Potassium [Moles/Vol] 3.9 mmol/L Normal 3.4-5.0 [facility] Comment on above: Performed By: #### P T, PTT #### [facility] [address] [place] [address] Dr. Joe Borrego Protein [Mass/Vol] 9.1 g/dL Critically high 6.1-8.2 [facility] Comment on above: Performed By: #### P T, PTT #### [facility] [address] [place] [address] Dr. Joe Borrego Sodium [Moles/Vol] 136 mmol/L Critically low 137-[address] [facility] Comment on above: Performed By: #### P T, PTT #### [facility] [address] [place] [address] Dr. Joe Borrego Urea nitrogen [Mass/Vol] 13.0 mg/dL Normal 9.0-20.0 [facility] Comment on above: Performed By: #### P T, PTT #### [facility] [address] [place] [address] Dr. Joe Borrego Urea nitrogen/Creatinine [Mass ratio] 9.4 mg/mg Normal [facility] Comment on above: Performed By: #### P T, PTT #### [facility] [address] [place] [address] Dr. Joe Borrego PROTIMEon 07-10-2021 INR Coag (PPP) [Relative time] 0.97 {INR} Normal [facility] Comment on above: Performed By: #### P T, PTT #### [facility] [address] [address] [address] Joe Borrego INR GUIDELINES SEE BELOW Normal [facility] Comment on above: Result Comment: CHA RED INR: 2.0 - 3.0 CONDITIONS NOT LISTED BELOW 2.5 - 3.5 FOR PROSTHETIC HEART VALVE REPLACEMENT 2.5 - 3.5 RECURRENT THROMBOSIS Performed By: #### P T, PTT #### [facility] [address] [address] [address] Joe Borrego PT Coag (PPP) [Time] 10.5 s Normal 9.0-11.6 [facility] Comment on above: Performed By: #### P T, PTT #### [facility] [address] [place] [address] Dr. Joe Borrego PTTon 07-10-2021 aPTT Coag (Bld) [Time] 26.2 s Normal 22.3-36.2 [facility] Comment on above: Performed By: #### P T, PTT #### [facility] [address] [place] [address] Dr. Joe Borrego XR NECK SOFT TISSUEon 2021 XR NECK SOFT TISSUE EXAM: XR NECK SOFT TISSUE HISTORY: Foreign body COMPARISON: None. TECHNIQUE: Frontal and lateral views of the neck FINDINGS: No radiopaque foreign body is seen. The prevertebral soft tissues are unremarkable. Imaged lung apices are clear. No acute bony abnormality is seen. Cervical alignment is normal. IMPRESSION: No radiopaque foreign body is seen. Electronically authenticated by: ELISEO BUTLER Date: 2021-07-10 21:59 Normal [facility] Vital Signs Date Time Vital Sign Value Performing Clinician Faci lity 08-04-2024 13:04-0400 Body mass index (BMI) [Ratio] 31.11 kg/m2 Catherine Ricardo SILVICULTURE TEACHER Work Phone: [facility] 08-04-2024 13:04-0400 Body temperature 98.4 [degF] Catherine Ricardo NP Work Phone: [facility] 08-04-2024 13:04-0400 Body weight 90.08 kg Catherine Ricardo [employer]ILVIC[employer] TEACHER Work Phone: [facility] 08-04-2024 13:04-0400 Diastolic blood pressure 76 mm[Hg] Catherine Ardonholz SILVICULTURE TEACHER Work Phone: [facility] 08-04-2024 13:04-0400 Heart rate 81 /min Catherinebaljit Ardonholz SILVICULTURE TEACHER Work Phone: [facility] [facility] 08-04-2024 13:04-0400 Respiratory rate 18 /min Catherinebaljit Ardonholz SILVICULTURE TEACHER Work Phone: [facility] 08-04-2024 13:04-0400 SaO2% (BldA) [Mass fraction] 98 % Catherine Tatumz SILVICULTURE TEACHER Work Phone: [facility] 08-04-2024 13:04-0400 Systolic blood pressure 108 mm[Hg] Catherine Ardonholz SILVICULTURE TEACHER Work Phone: [facility] 01-13-2024 14:07-0400 Body height 170.2 cm Ruby Gil SILVICULTURE TEACHER Work Phone: [facility] 01-13-2024 14:07-0400 Body mass index (BMI) [Ratio] 31.01 kg/m2 Ruby Gil SILVICULTURE TEACHER Work Phone: [facility] 01-13-2024 14:07-0400 Body temperature 97.59 [degF] Ruby Gil SILVICULTURE TEACHER Work Phone: [facility] 01-13-2024 14:07-0400 Body weight 89.81 kg Ruby Gil SILVICULTURE TEACHER Work Phone: [facility] 01-13-2024 14:07-0400 Diastolic blood pressure 80 mm[Hg] Ruby Gil SILVICULTURE TEACHER Work Phone: [facility] 01-13-2024 14:07-0400 Heart rate 89 /min Ruby Gil SILVICULTURE TEACHER Work Phone: [facility] Comment on above: 95% O2 01-13-2024 14:07-0400 Systolic blood pressure 120 mm[Hg] Ruby Gil SILVICULTURE TEACHER Work Phone: [facility] Encounters Encounter Date Encounter Type Care Provider Facility Start: 08-07-2024 End: 08-07-2024 Refill Catherine Aichholz SILVICULTURE TEACHER Work Phone: [facility] Comment on above: Type 2 diabetes art itus without complication, without long- term current use of insulin (Primary Dx) Start: 08-04-2024 End: 08-04-2024 Bamboo flowsheet Catherine Aichholz SILVICULTURE TEACHER Work Phone: [facility] Start: 08-04-2024 End: 08-04-2024 Bamboo flowsheet Catherine Aichholz SILVICULTURE TEACHER Work Phone: [facility] Start: 08-04-2024 End: 08-04-2024 ambulatory CATHERINE AICHHOLZ Not Available Start: 08-04-2024 End: 08-04-2024 Office outpatient visit 25 minutes Catherine Aichholz SILVICULTURE TEACHER Work Phone: [facility] Comment on above: Type 2 diabetes art itus without complication, without long- term current use of insulin (Primary Dx); Type 2 diabetes mellitus without complications; Testicular pain, left; Pain of left lower extremity Start: 01-13-2024 End: 01-13-2024 ambulatory RUBY PERRYK Not Available Start: 01-13-2024 End: 01-13-2024 Bamboo flowsheet Ruby Gantrick SILVICULTURE TEACHER Work Phone: [facility] Start: 01-13-2024 End: 01-13-2024 Bamboo flowsheet Ruby Gantrick SILVICULTURE TEACHER Work Phone: [facility] Start: 01-13-2024 End: 01-13-2024 Office outpatient visit 15 minutes Ruby Perryk SILVICULTURE TEACHER Work Phone: [facility] Comment on above: Type 2 diabetes art itus without complication, without long- term current use of insulin (CMS/HCC) (Primary Dx); Testicular pain, left; Blood in semen; Wellness examination; Cerumen debris on tympanic membrane of both ears Start: 01-13-2024 End: 01-13-2024 Patient encounter status Ruby Gil SILVICULTURE TEACHER Work Phone: [facility] Start: 12-25-2023 End: 12-26-2023 Refill Albino Gurrola MA [facility] Comment on above: Type 2 diabetes art itus without complication, without long- term current use of insulin (CMS/HCC) Start: 03-22-2022 End: 03-22-2022 ambulatory [facility] Facility: Start: 03-15-2022 End: 03-15-2022 ambulatory [facility] Facility: Start: 01-10-2022 End: 01-10-2022 ambulatory [facility] Facility: Start: 11-29-2021 End: 11-30-2021 ambulatory [facility] Facility:[facility]1 Start: 10-24-2021 ambulatory [facility] Facilit y:H1 Start: 09-20-2021 End: 09-21-2021 ambulatory [facility] Facility:[facility]1 Start: 07-20-2021 End: 07-21-2021 ambulatory [facility] Facility:[facility]1 Start: 07-11-2021 End: 07-12-[address] NONE LISTED REQUEST Facility:H1 Procedures Date Procedure Procedure Detail Performing Clinician Start: 08-04-2024 Hemoglobin glycosyla philomena a1c Catherine Ricardo SILVICULTURE TEACHER Work Phone: Plan of Treatment Date Care Activity Detail Author Start: 02-27-2025 Glaucoma screening Diabetes: R etinopathy Screening [facility] Start: 12-28-2024 Influenza vaccination Influenz a Vaccine (Season Ended) [facility] Start: 11-03-2024 Hemoglobin A1c measurement Diabetes: Hemoglobin A1C [facility] Start: 09-17-2024 End: 09-17-2024 Patient encounter procedure 09/17/2024 11:00 AM EDT Office Visit [facility] [address] [place] [address] Catherine Ricardo NP [address] [place] [address] [facility] Start: 08-04-2024 End: 08-04-2025 CBC W Auto Differential panel - Blood CBC and differential Lab Routine Type 2 diabetes mellitus without complication, without long-term current use of insulin ([facility]) Expected: 08/04/2024 (Approximate), Expires: 08/04/2025 [facility] Work Phone: Comment on above: Expected: 08/04/2024 (Approximate), Expires: 08/04/2025 Start: 08-04-2024 End: 08-04-2025 Comprehensive metabolic 2000 panel - Serum or Plasma Comprehensive metabolic panel Lab Routine Type 2 diabetes mellitus without complication, without long-term current use of insulin (CMS/HCC) Expected: 08/04/2024 (Approximate), Expires: 08/04/2025 [facility] Comment on above: Expected: 08/04/2024 (Approximate), Expires: 08/04/2025 Start: 08-04-2024 End: 08-04-2025 Hemoglobin A1c/Hemoglobin.total in Blood Hemoglobin A1c Lab Routine Type 2 diabetes mellitus without complication, without long-term current use of insulin Expected: 08/04/2024 (Approximate), Expires: 08/04/2025 [facility] Comment on above: Expected: 08/04/2024 (Approximate), Expires: 08/04/2025 Start: 08-04-2024 End: 08-04-2025 Lipid 1996 panel - Serum or Plasma Lipid panel Lab Routine Type 2 diabetes mellitus without complication, without long-term current use of insulin ([facility]) Expected: 08/04/2024 (Approximate), Expires: 08/04/2025 [facility] Comment on above: Expected: 08/04/2024 (Approximate), Expires: 08/04/2025 Start: 08-04-2024 End: 08-04-2025 Magnesium [Mass/volume] in Serum or Plasma Magnesium Lab Routine Pain of left lower extremity Expected: 08/04/2024 (Approximate), Expires: 08/04/2025 [facility] Comment on above: Expected: 08/04/2024 (Approximate), Expires: 08/04/2025 Start: 08-04-2024 End: 08-04-2025 Microalbumin/Creatinine panel in random Urine Microalbumin / creatinine, urine ratio Lab Routine Type 2 diabetes mellitus without complication, without long-term current use of insulin ([facility]) Expected: 08/04/2024 (Approximate), Expires: 08/04/2025 [facility] Comment on above: Expected: 08/04/2024 (Approximate), Expires: 08/04/2025 Start: 08-04-2024 End: 08-04-2025 Urinalysis complete panel - Urine Urinalysis with reflex microscopic (clean catch) Lab Routine Type 2 diabetes mellitus without complication, without long-term current use of insulin ([facility]) Expected: 08/04/2024 (Approximate), Expires: 08/04/2025 [facility] Comment on above: Expected: 08/04/2024 (Approximate), Expires: 08/04/2025 Start: 08-04-2024 End: 08-04-2025 US Scrotum and testicle US scrotum Imaging Routine Testicular pain, left Expected: 08/04/2024, Expires: 08/04/2025 [facility] Comment on above: Expected: 08/04/2024 , Expires: 08/04/2025 Start: 02-10-2024 End: 02-10-2024 Patient encounter procedure 02/10/2024 2:00 PM EDT Office Visit [facility] [address] [place] [address] Ruby Gil NP [address] [place] [address] [facility] Start: 01-13-2024 End: 01-12-2025 CBC W Auto Differential panel - Blood CBC and differential Lab Routine Type 2 diabetes mellitus without complication, without long-term current use of insulin ([facility]) Expected: 01/13/2024 (Approximate), Expires: 01/12/2025 [facility] Comment on above: Expected: 01/13/2024 (Approximate), Expires: 01/12/2025 Start: 01-13-2024 End: 01-12-2025 Comprehensive metabolic 2000 panel - Serum or Plasma Comprehensive metabolic panel Lab Routine Type 2 diabetes mellitus without complication, without long-term current use of insulin ([facility]) Expected: 01/13/2024 (Approximate), Expires: 01/12/2025 [facility] Comment on above: Expected: 01/13/2024 (Approximate), Expires: 01/12/2025 Start: 01-13-2024 End: 01-12-2025 Hemoglobin A1c/Hemoglobin.total in Blood Hemoglobin A1c Lab Routine Type 2 diabetes mellitus without complication, without long-term current use of insulin ([facility]) Expected: 01/13/2024 (Approximate), Expires: 01/12/2025 [facility] Comment on above: Expected: 01/13/2024 (Approximate), Expires: 01/12/2025 Start: 01-13-2024 End: 01-12-2025 Lipid 1996 panel - Serum or Plasma Lipid panel Lab Routine Wellness examination Expected: 01/13/2024 (Approximate), Expires: 01/12/2025 [facility] Comment on above: Expected: 01/13/2024 (Approximate), Expires: 01/12/2025 Start: 01-13-2024 End: 01-13-2024 Patient encounter procedure 01/13/2024 2:00 PM EDT Office Visit [facility] [address] [place] [address] Ruby Gil NP [address] [place] [address] [facility] Start: 01-13-2024 End: 01-12-2025 TSH W/REFLEX TO FT4 TSH W/REFLEX TO FT4 Lab Routine Wellness examination Expected: 01/13/2024 (Approximate), Expires: 01/12/2025 [facility] Comment on above: Expected: 01/13/2024 (Approximate), Expires: 01/12/2025 Start: 01-13-2024 End: 01-12-2025 US Scrotum and testicle US scrotum Imaging Routine Testicular pain, left Blood in semen Expected: 01/13/2024, Expires: 01/12/2025 [facility] Comment on above: Expected: 01/13/2024 , Expires: 01/12/2025 Start: 12-29-2023 Influenza vaccination Influenza Vacc ine (#1) [facility] Start: 01-27-2023 Hemoglobin A1c measurement Diabetes: Hemoglobin A1C [facility] Start: 2009 Urine screening for protein Diabetes: Urine Protein Screening [facility] Microalbumin/Creatin ine panel in random Urine Microalbumin / creatinine urine ratio Lab Routine Type 2 diabetes mellitus without complication, without long-term current use of insulin ([facility]) Ordered: 01/13/2024 [facility] Work Phone: Comment on above: Ordered: 01/13/2024 Payers Date Payer Category Payer Private Health Insurance [facility] [id number] 2023 Unknown [employer] [id number] 2023-Present [phone] [address] [address] [place] [address] [id number] 2023 Unknown [id number] 1990 Unknown [id number] 1990 Unknown [id number] .[id number] 1990 Unknown [id number] 1990 Unknown [id number] .[id number] 1990 Unknown [id number] .[id number] 1990 Unknown [id number] .[id number] 1990 Unknown [id number] .[id number] 1990 Unknown [id number] .[id number] 1990 Unknown [id number] 1990 Unknown [id number] 1959 Self-pay 1959 Unknown [id number] Social History Date Type Detail Facility Start: 04-10-2023 End: 01-13-2024 Tobacco smoking status [facility] Ex-smoker [facility] End: 04-29-2009 History of tobacco use Current smoker [facility] End: 04-29-2009 History of tobacco use Cigarette Smoker [facility] Start: 04-10-2023 End: 01-13-2024 Tobacco use and exposure Smokeless tobacco non-user [facility] Start: 05-28-2023 End: 08-04-2024 Alcoholic beverage intake Current drinker of alcohol (finding) [facility] Start: 05-28-2023 End: 01-13-2024 History of Social function [facility] Start: 05-28-2023 End: 01-13-2024 Tobacco use panel [facility] Start: 12-05-2023 Alcohol Comment [facility]IAL [facility] Start: 1990 Sex assigned at Not on file [facility] Medical Equipment Procedure Code Equipment Code Equipment Origin al Text Equipment Identifier Dates [id number] Start: 08-04-2024 End: 11-15-2024 History of Present illness Narrative 08-04-2024 Catherine Ricardo NP - 08/04/2024 2:08 PM EDTONY ARMSTRONG - 08/04/2024 1:00 PM Inocencia Ricardo NP - 08/04/2024 1:00 PM Inocencia Ricardo NP - 08/04/2024 7:01 AM EDT Note Date & Type Note Facility 08-04-2024 History of Presen t illness Narrative Associated Problem(s): Pain of left lower extremity No specific findings noted ?muscle cramps d/t glucose/elyte abnormals Does not appear to be DVT Behind left leg- started a couple weeks ago, no hx on how. Images from the original note were not included. Vic Esaon is a 34 y.o. male presents with chief complaint of Diabetes HPI: Never received call for scrotal US Diabetes He presents for his follow-up diabetic visit. He has type 2 diabetes mellitus. His disease course has been worsening. There are no hypoglycemic associated symptoms. Pertinent negatives for hypoglycemia include no dizziness, nervousness/anxiousness, seizures or tremors. Associated symptoms include polydipsia and polyuria. Pertinent negatives for diabetes include no foot paresthesias and no visual change. There are no hypoglycemic complications. Symptoms are worsening. There are no diabetic complications. Risk factors for coronary artery disease include diabetes mellitus, male sex and obesity. Current diabetic treatment includes oral agent (dual therapy). He is compliant with treatment some of the time. An RAYMOND inhibitor/angiotensin II receptor geni is not being taken. He does not see a campus monitor.Eye exam is not current. SUBJECTIVE: MEDICATIONS: Current Outpatient Medications Medication Instructions glipiZIDE (GLUCOTROL) 5 mg, Oral, 2 times daily before meals metFORMIN (GLUCOPHAGE) 1,000 mg, Oral, 2 times daily with meals ALLERGIES: No Known Allergies REVIEW OF SYMPTOMS: Review of Systems Constitutional: Negative for activity change, appetite change and unexpected weight change. HENT: Negative for ear pain, nosebleeds, sneezing, trouble swallowing and voice change. Eyes: Negative for pain, discharge and visual disturbance. Respiratory: Negative for apnea, chest tightness and wheezing. Cardiovascular: Negative for leg swelling. Gastrointestinal: Negative for abdominal distention, blood in stool, constipation and diarrhea. Genitourinary: Positive for testicular pain. Negative for decreased urine volume, difficulty urinating, dysuria and hematuria. Skin: Negative for color change. Neurological: Negative for dizziness, tremors and seizures. Psychiatric/Behavioral: Negative for agitation, decreased concentration, hallucinations, self-injury and suicidal ideas. The patient is not nervous/anxious. Hematological: Negative for adenopathy. Does not bruise/bleed easily. Endocrine: Positive for polydipsia and polyuria. Negative for cold intolerance and heat intolerance. Allergic/Immunologic: Negative for environmental allergies and food allergies. PAST MEDICAL HISTORY Past Medical History: Diagnosis Date Hyperlipidemia (CMS/HCC) Shortness of breath on exertion Type 2 diabetes mellitus History reviewed. No pertinent surgical history. family history is not on file. OBJECTIVE: Visit Vitals BP 108/76 (BP Location: Left arm, Patient Position: Sitting, BP Cuff Size: Adult long) Pulse 81 Temp 98.4 F (Temporal) Resp 18 Wt 198 lb 9.6 oz SpO2 98% BMI 31.11 kg/m Smoking Status Former BSA 2.06 m Physical Exam Vitals and nursing note reviewed. Constitutional: Appearance: Normal appearance. HENT: Head: Normocephalic. Right Ear: External ear normal. Left Ear: External ear normal. Nose: Nose normal. Mouth/Throat: Mouth: Mucous membranes are moist. Pharynx: Oropharynx is clear. Eyes: Extraocular Movements: Extraocular movements intact. Conjunctiva/sclera: Conjunctivae normal. Neck: Vascular: No carotid bruit. Cardiovascular: Rate and Rhythm: Normal rate and regular rhythm. Pulses: Normal pulses. Heart sounds: Normal heart sounds. Pulmonary: Effort: Pulmonary effort is normal. Breath sounds: Normal breath sounds. No wheezing or rhonchi. Abdominal: General: Bowel sounds are normal. Palpations: Abdomen is soft. There is no mass. Tenderness: There is no abdominal tenderness. There is no guarding. Musculoskeletal: Cervical back: Neck supple. Right lower leg: No edema. Left lower leg: No edema. Comments: Left knee: full ROM, no laxity no pain Calf soft neg homans Lymphadenopathy: Cervical: No cervical adenopathy. Skin: General: Skin is warm and dry. Capillary Refill: Capillary refill takes 2 to 3 seconds. Neurological: General: No focal deficit present. Mental Status: He is alert. Psychiatric: Mood and Affect: Mood normal. Behavior: Behavior normal. Thought Content: Thought content normal. Judgment: Judgment normal. ASSESSMENT AND PLAN: Follow up in about 4 weeks (around 09/01/2024) for Recheck. Problem List Items Addressed This Visit Type 2 diabetes mellitus without complication, without long-term current use of insulin - Primary Check blood sugars daily, notify if <70 or >200. Take medications (pills or insulin) as directed. Monitor for s/s of hypoglycemia (sweaty, dizziness, nausea, vomiting, or shakiness). Watch for increase in thirst, urination, or appetite. Inspect feet frequently monitoring for open wounds , and also recommend yearly eye exam. Pt should attempt to remain as physically active as chronic conditions allow, as well as trying to follow a diet low in carbohydrates, and simple sugars. Current meds: glipizide, metformin A1c: >15% No meds for about a month, then resumed no regularly Refer to welfare centre manager Fu in 4 weeks Relevant Medications glipiZIDE (Glucotrol) 5 MG tablet metFORMIN (Glucophage) 1000 MG tablet Other Relevant Orders POCT glycosylated hemoglobin (Hb A1C) docked device (Completed) CBC and differential Comprehensive metabolic panel Lipid panel Microalbumin / creatinine, urine ratio Urinalysis with reflex microscopic (clean catch) Hemoglobin A1c Ambulatory referral to Diabetic Education Testicular pain, left Was ordered US in 01/20, to date still not completed Still w occassional pain Will re order Relevant Orders US scrotum Pain of left lower extremity No specific findings noted ?muscle cramps d/t glucose/elyte abnormals Does not appear to be DVT Relevant Orders Magnesium Other Visit Diagnoses Type 2 diabetes mellitus without complications Relevant Orders POCT glycosylated hemoglobin (Hb A1C) docked device (Completed) CBC and differential Comprehensive metabolic panel Lipid panel Microalbumin / creatinine, urine ratio Urinalysis with reflex microscopic (clean catch) Hemoglobin A1c Ambulatory referral to Diabetic Education Associated Problem(s): Type 2 diabetes mellitus without complication, without long-term current use of insulin Check blood sugars daily, notify if <70 or >200. Take medications (pills or insulin) as directed. Monitor for s/s of hypoglycemia (sweaty, dizziness, nausea, vomiting, or shakiness). Watch for increase in thirst, urination, or appetite. Inspect feet frequently monitoring for open wounds , and also recommend yearly eye exam. Pt should attempt to remain as physically active as chronic conditions allow, as well as trying to follow a diet low in carbohydrates, and simple sugars. Current meds: glipizide, metformin A1c: >15% No meds for about a month, then resumed no regularly Refer to welfare centre manager Fu in 4 weeks Associated Problem(s): Testicular pain, left Was ordered US in 01/20, to date still not completed Still w occassional pain Will re order documented in this encounter [facility] Instructions 08-04-2024 Patient Instructions Note Date & Type Note Facility 08-04-2024 Instructions Catherine Ricardo NP - 08/04/2024 1:00 PM EDT Check blood sugars twice a day and record I will refer you Diabetic education Get labs done AJAY documented in this encounter [facility] History of Present illness Narrative 01-13-2024 Ruby Gil NP - 01/13/2024 4:29 PM EDAndres Gil NP - 01/13/2024 2:26 PM Juan Carlos Gil NP - 01/13/2024 2:00 PM EDT Note Date & Type Note Facility 01-13-2024 History of Presen t illness Narrative Associated Problem(s): Testicular pain, left Blood in semen X1 occurrence 2 weeks ago Has slight pain on L testicle Scrotal US ordered. Associated Problem(s): Type 2 diabetes mellitus without complication, without long-term current use of insulin ([facility]) Most recent labs: hemoglobin A1C No episode of hypoglycemia No medication adverse effects reported by the patient. Patient educated on lifestyle modifications, dietary restrictions, signs and symptoms of hypoglycemia/hyperglycemia and importance of eating regular consistent meals. Stressed upon importance of checking blood glucose at home and bring blood glucose log to appointments. All questions, concerns answered and addressed. Encouraged to call office if persistent hypoglycemia/hyperglycemia on home glucose monitoring noted. Labs need completed- did not complete ordered labs in March; Re-ordered DM panel today. Discussed with patient Continuous glucose monitors. Wants to think about it and will discuss at next OV, Would loike to discuss potentially coming off Metformin and starting injectables. Will discuss after labwork/ Images from the original note were not included. Subjective Patient ID: Vic Eason is a 33 y.o. male who presents for Annual Exam (Recently had blood in semen, some pain in groin). HPI Blood in semen X1 occurrence 2 weeks ago Has slight pain on L testicle Denies: rednesss/swelling Pain with urination Injury/trauma High risk sexual activity Groin pain Enlargement DMII: Most recent labs: hemoglobin A1C Average FSBS range from patient does not check sugars No episode of hypoglycemia No medication adverse effects reported by the patient. Patient educated on lifestyle modifications, dietary restrictions, signs and symptoms of hypoglycemia/hyperglycemia and importance of eating regular consistent meals. Stressed upon importance of checking blood glucose at home and bring blood glucose log to appointments. All questions, concerns answered and addressed. Encouraged to call office if persistent hypoglycemia/hyperglycemia on home glucose monitoring noted. Review of Systems Constitutional: Negative for activity change, appetite change, chills, diaphoresis, fatigue, fever and unexpected weight change. HENT: Negative for congestion, ear pain, rhinorrhea, sinus pressure, sinus pain, sneezing, sore throat, trouble swallowing and voice change. Eyes: Negative for visual disturbance. Respiratory: Negative for cough, chest tightness, shortness of breath and wheezing. Cardiovascular: Negative for chest pain, palpitations and leg swelling. Gastrointestinal: Negative for abdominal distention, abdominal pain, blood in stool, constipation, diarrhea and vomiting. Genitourinary: Positive for penile discharge and testicular pain. Negative for decreased urine volume, dysuria, flank pain, frequency, hematuria and urgency. Musculoskeletal: Negative for arthralgias, gait problem, joint swelling and myalgias. Skin: Negative for rash. Neurological: Negative for dizziness, tremors, syncope, weakness, light-headedness and headaches. Psychiatric/Behavioral: Negative for decreased concentration and suicidal ideas. The patient is not nervous/anxious. Hematological: Does not bruise/bleed easily. Endocrine: Negative for cold intolerance, heat intolerance, polydipsia, polyphagia and polyuria. Objective Physical Exam Vitals reviewed. Constitutional: Appearance: Normal appearance. HENT: Head: Normocephalic and atraumatic. Right Ear: Tympanic membrane normal. Left Ear: Tympanic membrane normal. Nose: Nose normal. Mouth/Throat: Mouth: Mucous membranes are moist. Pharynx: Oropharynx is clear. Eyes: Pupils: Pupils are equal, round, and reactive to light. Cardiovascular: Rate and Rhythm: Normal rate and regular rhythm. Pulses: Normal pulses. Heart sounds: Normal heart sounds. Pulmonary: Effort: Pulmonary effort is normal. Breath sounds: Normal breath sounds. Abdominal: General: Abdomen is flat. Bowel sounds are normal. Palpations: Abdomen is soft. Musculoskeletal: General: Normal range of motion. Cervical back: Normal range of motion. Skin: General: Skin is warm and dry. Capillary Refill: Capillary refill takes less than 2 seconds. Neurological: General: No focal deficit present. Mental Status: He is alert and oriented to person, place, and time. Psychiatric: Mood and Affect: Mood normal. Behavior: Behavior normal. Assessment/Plan Problem List Items Addressed This Visit Type 2 diabetes mellitus without complication, without long-term current use of insulin ([facility]) - Primary Most recent labs: hemoglobin A1C No episode of hypoglycemia No medication adverse effects reported by the patient. Patient educated on lifestyle modifications, dietary restrictions, signs and symptoms of hypoglycemia/hyperglycemia and importance of eating regular consistent meals. Stressed upon importance of checking blood glucose at home and bring blood glucose log to appointments. All questions, concerns answered and addressed. Encouraged to call office if persistent hypoglycemia/hyperglycemia on home glucose monitoring noted. Labs need completed- did not complete ordered labs in March; Re-ordered DM panel today. Discussed with patient Continuous glucose monitors. Wants to think about it and will discuss at next OV, Would loike to discuss potentially coming off Metformin and starting injectables. Will discuss after labwork/ Relevant Orders Microalbumin / creatinine urine ratio Hemoglobin A1c Comprehensive metabolic panel CBC and differential Testicular pain, left Blood in semen X1 occurrence 2 weeks ago Has slight pain on L testicle Scrotal US ordered. Relevant Orders US scrotum Blood in semen Relevant Orders US scrotum Wellness examination Relevant Orders TSH W/REFLEX TO FT4 Lipid panel Cerumen debris on tympanic membrane Relevant Medications carbamide peroxide (Debrox) 6.5 % otic solution documented in this encounter [facility] Instructions 01-13-2024 Patient Instructions Note Date & Type Note Facility 01-13-2024 Instructions Ruby Gil NP - 01/13/2024 2:00 PM EDT FASTING labs ordered. Nothing to eat or drink for 12 hours prior to blood draw. Water and black coffee ok. Start Debrox for ear wax. Referral sent to ENT- they will call you! documented in this encounter [facility] Clinical Note 07-11-2021 Note Date & Type Note Facility 07-11-2021 Note [facility] [place], [place] NAME: VIC EASON DATE OF : MEDICAL REC#: [id number] TOWEL WEAVER: [address] [facility], [facility] DATE: 07/11/2021 00:31:00 SHOEMAKING FINISHER DATE: 07/12/2021 01:00 DICTATING PHYSICIAN: PATRICIA PEPE DICTATION DATE: 07/11/2021 12:00 OPERATIVE NOTE PREOPERATIVE DIAGNOSIS: Dysphagia, food impaction. POSTOPERATIVE DIAGNOSIS: No evidence of food bolus or esophageal irritation. No hiatal hernia. No retained food within the stomach. PROCEDURE: EGD under anesthesia. SURGEON: Patricia Pepe M.D. ANESTHESIA: General endotracheal. ESTIMATED BLOOD LOSS: 0 ml INDICATIONS AND CONSENT: Patient is a 31-year-old male who was eating shrimp last night and felt that the food was lodged in his lower esophagus. He did try to vomit and did bring up some of it, but then felt like there was still something lodged in the upper esophagus with the feeling of pressure. He was able to swallow his own saliva, but whenever he would try to eat or drink anything, it would come back up. He presented to the emergency room for further evaluation, had negative soft tissue films of the neck. Workup there revealed normal laboratory evaluation; however, he was found to have a markedly elevated glucose of almost 500. He did report a history of some polyuria recently, but no diagnosis of diabetes. He was admitted for further workup of this and was kept NPO. Still feels that there is some type of abnormal sensation in the upper esophagus. Has had no further vomiting, has been NPO since he has been here, but has had no trouble swallowing his saliva. Indications, risks, benefits, alternatives of proceeding with EGD with possible removal or reduction of food bolus into the stomach were extensively to the patient, including the risks of bleeding, aspiration, esophagus/gastric/duodenal perforation or anesthetic complications. All of his questions were answered. Informed consent was obtained. PROCEDURE: Patient brought to the operating room, placed in the supine position. General anesthesia was induced. He was then placed in the left lateral decubitus position. Bite block was placed in the patient's mouth. Scope was inserted into the oropharynx. There was noted to be some slight irritation of the left oropharynx near the opening of the esophagus, but there was no active bleeding or evidence of foreign body in that area. The scope was inserted past the cricopharyngeus, down to the stomach. There was no blockage or irritation noted along the entire length of the esophagus. No narrowing. It was passed through the pylorus and into the duodenum. There was no evidence of duodenitis or ulceration. Scope was pulled back into the stomach and retroflexed. There was no significant hiatal hernia. No evidence of food or other abnormalities within the stomach. The GE junction was noted at approximately 40 cm. There was no distal esophagitis or Conte's changes. Upon withdrawal of the scope, mucosal surfaces were carefully examined. There were no inflammatory changes, ulcerations or other abnormalities of the esophagus. The scope was then withdrawn. The patient tolerated procedure well, was extubated and sent to recovery room in good condition. CC: Patient's family physician Electronically Authenticated and Edited by: Patricia Pepe MD on 07/12/2021 07:51 AM EDT I[facility] Signed and Approved by: DR PATRICIA PEPE . 07/12/2021 07:51:00 [facility] Consultation note 07-11-2021 Note Date & Type Note Facility 07-11-2021 Note CONSULTATION CHIEF COMPLAINT: Dysphagia, possible food impaction. HISTORY OF PRESENT ILLNESS: Patient is a 31-year-old male with no known medical problems, who presented to the ED last night with a complaint of possible food impaction. He was eating shrimp. It felt like they got lodged in his lower esophagus. He was able to vomit up some of the material, but then felt that there was still something abnormal in the upper esophagus. He did feel pressure there, was able to saliva, had no difficulty speaking, but whenever he would try to eat or drink, it would come back up. Workup in the ER revealed negative soft tissue neck films. No abnormality of inflammatory series. Found a markedly elevated glucose of almost 500. He did admit to having episodes of polydipsia and polyuria for several weeks, but had no known diagnosis of diabetes. He has no known family history since he is adopted. He was admitted for further workup and treatment of the diabetes and kept NPO. He has had no problems swallowing his saliva, does still feel an abnormality in the upper esophagus, pressure sensation. He has not tried to eat since he has been NPO since his admission. He denies any history of gastroesophageal reflux disease, previous episodes of dysphagia or food impaction. He has had no nausea, vomiting or bowel changes. No abdominal pains. No previous abdominal or neck surgery or back surgery. MEDICATIONS: Denies any medications, is on no [id number] medications. ALLERGIES: Has no known drug allergies. PAST SURGICAL HISTORY: Denies any previous surgical operations. SOCIAL HISTORY: Patient denies any tobacco use. Rare alcohol use. No illicit drug use. FAMILY HISTORY: Unknown. REVIEW OF SYSTEMS: Ten system review of systems is negative for recent weight loss or weight gain. Denies headaches, seizures, tremors. No easy bruising or bleeding. No heat or cold intolerance. No polydipsia, polyphagia, polyuria. No cough or shortness of breath. No abdominal pain, nausea or vomiting. No diarrhea, constipation, decreased caliber of the stool. No melena, hematochezia or blood per rectum. No dysuria, frequency, urgency or hematuria. PHYSICAL EXAM: On physical exam, patient is afebrile. VITAL SIGNS: Blood pressure is 115/65. Heart rate is 75 and regular. Respiratory rate is 16. O2 saturation is 97%. GENERAL: He is well developed, well nourished male in no acute distress. HEENT: Normocephalic, atraumatic. Sclerae anicteric. Conjunctivae are not injected. Oral mucosa is moist without lesions. NECK: Supple. There is no adenopathy, thyromegaly or JVD. LUNGS: Clear bilaterally. CARDIAC EXAM: Regular rhythm and rate with no murmurs, rubs or gallops. ABDOMEN: Soft, non-tender, non-distended. There are no masses, hepatosplenomegaly or hernias. No CVA tenderness. SKIN: Warm and dry with no lesions, masses or ulcers. NEUROLOGICAL: Non-focal, PSYCHOLOGICAL: Patient is awake, alert, oriented with appropriate affect. ASSESSMENT: A 31-year-old male with dysphagia, feeling of possible food impaction as well as inability to eat or drink and new onset diabetes mellitus. PLAN: The plan is to proceed with EGD under anesthesia for further evaluation. Indication, risks, benefits, alternatives of proceeding were explained extensively to the patient, including the risks of bleeding, aspiration, esophageal/gastric/duodenal perforation or anesthetic complications. All his questions were answered. Informed consent was obtained. CC: Family physician [facility] Signed and Approved by: DR PATRICIA PEPE . 07/13/2021 16:21:00 [facility] Evaluation note Note Date & Type Note Facility Evaluation note Diagnosis Type 2 diabetes mellitus without complication, without long-term current use of insulin (CMS/HCC)- Primary Testicular pain, left Unspecified disorder of male genital organs Blood in semen Hematospermia Wellness examination Cerumen debris on tympanic membrane of both ears documented in this encounter [facility] Evaluation note Note Date & Type Note Facility Evaluation note Diagnosis Type 2 diabetes mellitus without complication, without long-term current use of insulin (CMS/HCC) documented in this encounter [facility] Evaluation note Note Date & Type Note Facility Evaluation note Diagnosis Type 2 diabetes mellitus without complication, without long-term current use of insulin- Primary Mixed hyperlipidemia (CMS/HCC) Mixed hyperlipidemia Right wrist pain Pain in joint, forearm Left foot pain Pain in soft tissues of limb Enlarged tonsils Hypertrophy of tonsils alone Type 2 diabetes mellitus without complication, without long-term current use of insulin- Primary Testicular pain, left Unspecified disorder of male genital organs Blood in semen Hematospermia Wellness examination Cerumen debris on tympanic membrane of both ears Type 2 diabetes mellitus without complication, without long-term current use of insulin- Primary Type 2 diabetes mellitus without complications Testicular pain, left Unspecified disorder of male genital organs Pain of left lower extremity documented in this encounter [facility] Evaluation note Note Date & Type Note Facility Evaluation note Diagnosis Type 2 diabetes mellitus without complication, without long-term current use of insulin- Primary Mixed hyperlipidemia (CMS/HCC) Mixed hyperlipidemia Right wrist pain Pain in joint, forearm Left foot pain Pain in soft tissues of limb Enlarged tonsils Hypertrophy of tonsils alone Type 2 diabetes mellitus without complication, without long-term current use of insulin- Primary Testicular pain, left Unspecified disorder of male genital organs Blood in semen Hematospermia Wellness examination Cerumen debris on tympanic membrane of both ears Type 2 diabetes mellitus without complication, without long-term current use of insulin- Primary Type 2 diabetes mellitus without complications Testicular pain, left Unspecified disorder of male genital organs Pain of left lower extremity Type 2 diabetes mellitus without complication, without long-term current use of insulin- Primary documented in this encounter [facility] Summary Purpose Family History No Family History Records FoundNo Family History Records FoundNo Family History Records Found Advance Directives No Advanced Directives Records FoundNo Advanced Directives Records FoundNo Advanced Directives Records Found Additional Source Comments (unrecognized sect ion and content) No Status Records FoundNo Status Records FoundNo Status Records Found INFORMATION SOURCE (unrecogn ized section and content) DATE CREATED AUTHOR 07/30/2021 [facility] DATE CREATED AUTHOR AUTHOR'S ORGANIZ ATION 03/27/2022 [facility] DATE CREATED AUTHOR AUTHOR'S ORGANIZ ATION 08/05/2024 [facility] Care Teams (unrecognized sec tion and content) Bioinformatics Support Specialist Relationship Specialty Start Date End Date John Gar MD [address] [place] [phone] PCP - General Family Medicine 12/25/23 Ruby Gil NP [address] [place] [phone] Nurse Practitioner Family Medicine 12/25/23 Bioinformatics Support Specialist Relationship Specialty Start Date End Date John Gar MD [address] [place] [phone] PCP - General Family Medicine 12/25/23 Ruby Gil NP [address] [place] [phone] Nurse Practitioner Family Medicine 12/25/23 Bioinformatics Support Specialist Relationship Specialty Start Date End Date John Gar MD [address] [place] [phone] PCP - General Family Medicine 12/25/23 Ruby Gil NP [address] [place] [phone] Nurse Practitioner Family Medicine 12/25/23 Bioinformatics Support Specialist Relationship Specialty Start Date End Date John Gar MD [address] [place] [phone] PCP - General Family Medicine 12/25/23 Ruby Gil NP [address] [place] [phone] Nurse Practitioner Family Medicine 12/25/23 Bioinformatics Support Specialist Relationship Specialty Start Date End Date John Gar MD [address] [place] [phone] PCP - General Family Medicine 12/25/23 Ruby Gil NP [address] [place] [phone] Nurse Practitioner Family Medicine 12/25/23 Bioinformatics Support Specialist Relationship Specialty Start Date End Date John Gar MD [address] [place] [phone] PCP - General Family Medicine 12/25/23 Ruby Gil NP [address] [place] [phone] Nurse Practitioner Family Medicine 12/25/23 Reason for Visit (unrecogniz ed section and content) Reason Comments Annual Exam Recently had blood i n semen, some pain in groin Reason Onset Date Comments Med Refill 12/25/2023 Reason Comments Diabetes FOR RECORDS PERTAINING TO PATIENTS WHO ARE OR HAVE BEEN ENROLLED IN A CHEMICAL DEPENDENCY/SUBSTANCEABUSE PROGRAM, SOME INFORMATION MAY BE OMITTED. This clinical summary was aggregated from multiple sources. Caution should be exercised in using it in the provision of clinical care. This summary normalizes information from multiple sources, and as a consequence, information in this document may materially change the coding, format and clinical context of patient data. In addition, data may be omitted in some cases. CLINICAL DECISIONS SHOULD BE BASED ON THE PRIMARY CLINICAL RECORDS. [facility]. provides no warranty or guarantee of the accuracy or completeness of information in this document.
== END 2024-08-08 11:01 | disposition home or self-care (01) ==
LOC: US 11:01
PROVIDERS: PCP Nurse Practitioner; Visit Provider Nurse Practitioner
DX: N50.812 Left testicular pain (principal)
CPT/HCPCS: 76870

== ENCOUNTER 2025-04-02 08:46 | Outpatient (OUT) | payer OTHER, SELFPAY ==
--- OUTSIDE RECORDS SUMMARY | 2025-04-02 08:50 | XMS_ITS | CCD ---
Author Organization [facility] CliniSyid Care Team Providers Care Rn Womens [facility] Name Role Phone FAWWAD, OCONNOR H Admitting [...] Consulting Unavailable REQUEST, NONE LISTED Primary Care UnavailDR MARIANA [place] Consulting Unavailable SAMSA, MARIANELA Admitting Unavailable SAMSA, MARIANELA Attending Unavailable DR JOHN GAR Consulting Unavailable NILL, DR GOMEZ Consulting Unavailable SAMSA, MARIANELA Consulting Unavailable AGUBOSIM, MEME Consulting Unavailable ISREAL DELL Consulting Unavailable ELISEO BUTLER Consulting Unavailable oJhn Gar MD Primary Care Provider Jeffery MITCHELL, Ruby Unavailable Jeffery DRYWALL HANGER, Ruby Unavailable RUBY GIL Attending UnavailCATHERINE Short Unavailable Margarita ELIAS, Oconnor Primary Care Provider Margarita ELIAS, Oconnor Primary Care Provider John Gar MD Primary Care Provider Jeffery DRYWALL HANGER, Ruby Unavailable Davion DRYWALL HANGER-CCatherine Primary Care Provider Davion MITCHELL-C, Catherine Blackwell Attending Provider Medications Current Medications MedicationDrug Class(es)DatesSig (Normalized)Sig (Original)carbamide peroxide 65 mg/ml otic solution (2 sources)Start: 01-13-2024 End: 62-30-9915nqfkymack peroxide (Debrox) 6.5 % otic solution Indications: Cerumen debris on tympanic membrane ofboth ears Administer 3-5 drops into affected ear(s) in the morning and 3-5 drops before bedtime. Doall this for 4 days. 15 mL 01/13/2024 01/17/2024 ActiveglipiZIDE 5 mg oral tablet (16 sources)SulfonylureaStart: 81-03-1536tncw 1 tablet by mouth twice daily Glipizide 5 mg tablet Active 5 MG PO Twice daily March 09, 2025 12:00am Complies with drug therapyStart: 04-30-2023 End: 42-16-6571gaqa 1 tablet by mouth in the morningglipiZIDE (Glucotrol) 5 MG tablet Indications: Type 2 diabetes mellitus without complication, without long- term current use of insulin (HCC) Take 1 tablet (5 mg) by mouth in the morning and 1 tablet (5 mg) in the evening. Take before meals. 180 tablet 08/04/2024 01/31/2025 ActivemetFORMIN hydrochloride 1000 mg oral tablet (16 sources)BiguanideStart: 60-47-8598yops 1 tablet by mouth twice daily at mealtimeMetformin 1,000 mg tablet Active 1000 MG PO Twice daily with meals March 09, 2025 12:00am Complies with drug therapyStart: 05-01-2023 End: 70-97-7218uuoh 1 tablet by mouth in the morningmetFORMIN (Glucophage) 1000 MG tablet Indications: Type 2 diabetes mellitus without complication, without long-term current use of insulin (HCC) Take 1 tablet (1,000 mg) by mouth in the morning and 1tablet (1,000 mg) in the evening. Take with meals. 180 tablet 08/04/2024 01/31/2025 Active Problems Active Problems Problem ClassificationProblemDateDocumented DateEpisodic/ChronicAcute and chronic tonsillitis (15 sources)Enlarged tonsil; Translations: [Hypertrophy of tonsils]Onset: 072207-70-3063YkcsfezMrhbs and chronic tonsillitis (1 source)Acute tonsillitis, unspecified; Translations: [ACUTE TONSILLITIS UNSPECIFIED]Onset: 43-29-4934UlwbupoqDrgirzvn mellitus with complications (4 sources)Type 1 diabetes mellitus with other specified complication; Translations: [TYPE 1 DM W/OTHER SPEC COMPLICATION]Onset: 83-02-6867Tzwzrzn Diabetes mellitus without complication (20 sources)Type 2 diabetes mellitus without complications; Translations: [Type 2 diabetes mellitus without complication]Onset: 47-01-0063QqhkkdpWpnaslqsg of lipid metabolism (16 sources)Mixed hyperlipidemia; Translations: [Mixed hyperlipidemia]Onset: 808270-66-8767JceuwvjJpkjbrpbewhgl gastroenteritis (4 sources)Noninfective gastroenteritis and colitis, unspecified; Translations: [NONINFECTIVE GE AND COLITIS UNS]Onset: 51-53-0369HaxczsloCtonr aftercare (1 source)Other group home (current) drug therapy; Translations: [OTH PULP BEATER CURRENT DRUG THERAPY]Onset: 20-69-6094ZhxpfjsbDmumz aftercare (1 source)long term (current) use of oral hypoglycemic drugs; Translations: [PULP BEATER USE ORAL 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 DX]Onset: 38-20-1309FzhhvsxdCwhin connective tissue disease (12 sources)Pain in left lower limb; Translations: [Pain in left leg]Onset: 273096-99-5812RizdekyvAaovx diseases of veins and lymphatics (8 sources)Varicocele; Translations: [Scrotal varices]Onset: 08-11-2024 57-83-5532PywtdwfrLxfyk ear and sense organ disorders (2 sources)Excessive cerumen in ear canal ; Translations: [Impacted cerumen, bilateral]49-18-9124DoqhjelqCgaar ear and sense organ disorders (13 sources)Impacted cerumen; Translations: [Impacted cerumen, unspecified ear] Onset: 396410-97-4961EkmpidhcRgvgz male genital disorders (15 sources)Hemospermia; Translations: [Hematospermia]Onset: 01-13-2024 56-32-0357MwoynvizQrzek male genital disorders (1 source)Pain in testicle; Translations: [Testicular pain, unspecified] 67-56-1304YnowuhkjVzcjv non-traumatic joint disorders (15 sources)Pain of right wrist; Translations: [Pain in right wrist]Onset: 230797-98-5870XukhstlvObfgb upper respiratory infections (4 sources)Acute pharyngitis, unspecified; Translations: [ACUTE PHARYNGITIS UNSPECIFIED]Onset: 35-05-4882QxnzejvcNiybadxk codes; unclassified (2 sources)Noncompliance with treatment; Translations: [Noncompliance]03-09-2025 EpisodicScreening and history of mental health and substance abuse codes (1 source)Personal history of nicotine dependence; Translations: [PERSONAL HISTORY OF NICOTINE DEPEND]Onset: 27-54-1853FvuimxorSdidwrrtwhsh (1 source)CONTACT W/AND (SUSP) EXPOS COVID-19; Translations: [CONTACT W/AND (SUSP) EXPOS COVID-19]Onset: 07-14-2021 Past or Other Problems Problem ClassificationProblemDateDocumented DateEpisodic/ChronicOther connective tissue disease (14 sources)Pain in left foot; Translations: [Pain in left foot]Onset: 652109-66-4725FnkpmqksDtlge gastrointestinal disorders (3 sources)Dysphagia, unspecified; Translations: [DYSPHAGIA UNSPECIFIED]Onset: 02-83-1569OicydvmdMtdbv injuries and conditions due to external causes (1 source)Food in esophagus causing other injury, initial encounter; Translations: [FOOD ESOPH CAUS OTH INJURY INIT ENC]Onset: 84-23-4802Mioelbvj Other lower respiratory disease (4 sources)Shortness of breath; Translations: [SHORTNESS OF BREATH]Onset: 18-46-7622NgpmwuknLqkyh male genital disorders (18 sources)Pain of left testicle; Translations: [Left testicular pain]Onset: 681036-49-1812RwvciwrlDdqco screening for suspected conditions (not mental disorders or infectious disease) (1 source)Encounter for screening for lipoid disorders; Translations: [ENC SCREENING FOR LIPOID DISORDERS]Onset: 94-22-6078Ojgwjcxb Results Test NameValueInterpretationReference JvebgXfqcoembPoV6t HPLC (Bld) [Mass fraction]Ordered By: Catherine Ricardo on 87-09-8454AwC6k (Bld) [Mass fraction]13.8 %[facility] HospitalProvider Letteron 36-17-3540Gbedsctq Letter Provider Letter September 29, 2024 [address]ON [address] [place] [id number] : 1990 Dear Vic Eason, We have been trying to reach you with no success. It is important that you return our call regarding your referral from your primary care provider upon receiving this letter. Also, at the time of your call, please provide us with your current information. Thank you for your prompt attention to this matter. Sincerely, [facility] [place] [address] NormalPromedica Fostoria Community HospitalUS Scrotum and testicleon 83-50-1845[place] [address] Ultrasound Report Signed Patient: VIC EASON MR#: [id number] : 1990 Acct:[id number] Age/Sex: 34 / M ADM Date: 08/08/24 Loc: US Attending Dr: Catherine Ricardo NP Ordering Physician: Catherine Ricardo NP Date of Service: 08/08/24 Procedure(s): US scrotum Accession Number(s): [id number] cc: Catherine Ricardo NP [facility] [place] [address] Patient Name: VIC EASON MRN: [facility]:[id number] date: 1990 Sex: M Assigned Patient Location: US Current Patient Location: Accession/Order Number: [id number] Exam Date: 08/10/2024 09:43 Report Date: 08/10/2024 09:45 At the request of: CATHERINE RICARDO NP Procedure: US scrotum SCROTAL ULTRASOUND WITH DUPLEX IMAGING CLINICAL DATA: Left testicular pain intermittently for the past few months. No injury. COMPARISON: None The right testis measures 4.8 x 3.4 x 1.6 cm . The left testis measures 4.5 x 3.2 x 2.0 cm. There is normal echogenicity. No intratesticular masses are identified. There is documentation of bilateral duplex and color Doppler testicular blood flow. The epididymal heads are similar in size. No hydrocele is seen. There are prominent vessels adjacent to the left testis with increased blood flow on Valsalva that may be varicocele. US/US scrotum IMPRESSION: NO INTRATESTICULAR MASS OR TORSION. SUSPECTED LEFT VARICOCELE. Impression dictated by: Erica Torres M.D.08/10/2024 9:45 AM Dictation Location: [place] [address] Electronically authenticated by: [id number] Y Date: 08/10/2024 09:45 Dictated By: Erica Torres M.D. Signed By: 08/10/2448 DD/ TD/TT: Land Acquisition Specialist:TBHRadiology, Radiologist, - 08/10/2024 [place] [address] Ultrasound Report Signed Patient: VIC EASON MR#: [id number] : 1990 Acct:[id number] Age/Sex: 34 / M ADM Date: 08/08/24 Loc: US Attending Dr: Catherine Ricardo NP Ordering Physician: Catherine Ricardo NP Date of Service: 08/08/24 Procedure(s): US scrotum Accession Number(s): [id number] cc: Catherine Ricardo NP [place] [id number] Patient Name: VIC EASON MRN: [facility]:[id number] date: 1990 Sex: M Assigned Patient Location: Current Patient Location: Accession/Order Number: [id number] Exam Date: 08/10/2024 09:43 Report Date: 08/10/2024 09:45 At the request of: CATHERINE RICARDO NP Procedure: US scrotum SCROTAL ULTRASOUND WITH DUPLEX IMAGING CLINICAL DATA: Left testicular pain intermittently for the past few months. No injury. COMPARISON: None The right testis measures 4.8 x 3.4 x 1.6 cm . The left testis measures 4.5 x 3.2 x 2.0 cm. There is normal echogenicity. No intratesticular masses are identified. There is documentation of bilateral duplex and color Doppler testicular blood flow. The epididymal heads are similar in size. No hydrocele is seen. There are prominent vessels adjacent to the left testis with increased blood flow on Valsalva that may be varicocele. US/US scrotum IMPRESSION: NO INTRATESTICULAR MASS OR TORSION. SUSPECTED LEFT VARICOCELE. Impression dictated by: Erica Torres M.D.08/10/2024 9:45 AM Dictation Location: [place] [address] Electronically authenticated by: [id number] Y Date: 08/10/2024 09:45 Dictated By: Erica Torres M.D. Signed By: 08/10/24 0948 DD/ 4 TD/TT: Land Acquisition Specialist: [facility] HealthcareRadiology Study observation (narrative)[facility] HealthcareUS Scrotum and testicleOrdered By: Radiologist Radiology on 39-59-3060[facility] Work Phone: HbA1c (Bld) [Mass fraction]on 93-41-0718Lajozsgwldhfqf and review of laboratory resultsAbnormalNOEastern Missouri State HospitalNOMS HealthcareLaboratory - Hematology and Cell countson 74-67-3494MjF8z (Bld) [Mass fraction]%NOMS HealthcareXR Wrist - right 3 Viewson 83-56-0896[address] [address] XRay Report Signed Patient: VIC EASON MR#: [id number] : 1990 Acct:[id number] Age/Sex: 33 / M ADM Date: 04/05/23 Loc: RAD Attending Dr: Shaikh Margarita Swift Ordering Physician: Shaikh Jamison Avila Date of Service: 04/05/23 Procedure(s): XR wrist RT min 3V Accession Number(s): [id number] cc: Shaikh Jamison Avila [place] [address] Patient Name: VIC EASON MRN: [id number] date: 1990 Sex: M Assigned Patient Location: [facility] Current Patient Location: [facility] Accession/Order Number: [id number] Exam Date: 04/05/2023 15:45 Report Date: 04/08/2023 02:01 At the request of: SHAIKH MARGARITA Procedure: XR wrist RT min 3V PROCEDURE: XR wrist RT min 3V HISTORY: Right Wrist Pain M25.531 COMPARISON: XR wrist right 03/05/2023 FINDINGS: BONES:No acute fracture or dislocation. Chronic, likely post traumatic changes of the distal ulna. Stable tiny round ossifications anterior to the proximal radial carpal joint, likely sequela of remote injury. SOFT TISSUES:No visible soft tissue swelling. EFFUSION:None visible. OTHER: Negative. XR/XR wrist RT min 3V IMPRESSION: 1. No acute bone abnormality. Stable wrist. Electronically authenticated by: JOSE RAMIREZ Date: 04/08/2023 02:01 Dictated By: Jose Ramirez M.D. Signed By: 04/08/23203 DD/ 0 TD/TT: Land Acquisition Specialist:TBHRadiology, Radiologist, - 04/08/2023 [place] [address] XRay Report Signed Patient: VIC EASON MR#: [id number] : 1990 Acct:[id number] Age/Sex: 33 / M ADM Date: 04/05/23 Loc: RAD Attending Dr: Shaikh Margarita Swift Ordering Physician: Shaikh Jamison Avila Date of Service: 04/05/23 Procedure(s): XR wrist RT min 3V Accession Number(s): [id number] cc: Shaikh Jamison Avila [facility] [place] [id number] Patient Name: VIC EASON MRN: [id number] date: 1990 Sex: M Assigned Patient Location: [facility] Current Patient Location: [facility] Accession/Order Number: [id number] Exam Date: 04/05/2023 15:45 Report Date: 04/08/2023 02:01 At the request of: SHAIKH MARGARITA Procedure: XR wrist RT min 3V PROCEDURE: XR wrist RT min 3V HISTORY: Right Wrist Pain M25.531 COMPARISON: XR wrist right 03/05/2023 FINDINGS: BONES:No acute fracture or dislocation. Chronic, likely post traumatic changes of the distal ulna. Stable tiny round ossifications anterior to the proximal radial carpal joint, likely sequela of remote injury. SOFT TISSUES:No visible soft tissue swelling. EFFUSION:None visible. OTHER: Negative. XR/XR wrist RT min 3V IMPRESSION: 1. No acute bone abnormality. Stable wrist. Electronically authenticated by: JOSE RAMIREZ Date: 04/08/2023 02:01 Dictated By: Jose Ramirez M.D. Signed By: 04/08/23203 DD/ 0 TD/TT: Land Acquisition Specialist: [facility] HealthcareRadiology Study observation (narrative)NOMS HealthcareXR Wrist - right 3 ViewsOrdered By: Radiologist Radiology on 84-12-0043[facility] Work Phone: XR FOOT LT MIN 3Von 26-25-4291[place] [address] XRay Report Signed Patient: VIC EASON MR#: [id number] : 1990 Acct:[id number] Age/Sex: 33 / M ADM Date: 04/05/23 Loc: RAD Attending Dr: Shaikh Margarita Swift Ordering Physician: Shaikh Jamison Avila Date of Service: 04/05/23 Procedure(s): XR foot LT min 3V Accession Number(s): [id number] cc: Shaikh Jamison Avila [facility] [place] [address] Patient Name: VIC ESAON MRN: [id number] date: 1990 Sex: M Assigned Patient Location: RAD Current Patient Location: Accession/Order Number: [id number] Exam Date: 04/05/2023 15:45 Report Date: 04/07/2023 23:08 At the request of: SHAIKH MARGARITA Procedure: XR foot LT min 3V PROCEDURE: XR foot LT min 3V HISTORY: Left Foot Pain M79.672 ; medial arch pain COMPARISON: None. FINDINGS: BONES:No fracture, acute abnormality, or significant arthropathy. Tiny calcaneal plantar spur. SOFT TISSUES:No visible soft tissue swelling. EFFUSION:None visible. OTHER: Negative. XR/XR foot LT min 3V IMPRESSION: 1. No acute abnormality or significant degenerative changes. Electronically authenticated by: JOSE RAMIREZ Date: 04/07/2023 23:08 Dictated By: Jose Ramirez M.D. Signed By: 04/07/232309 DD/ 07 TD/TT: Land Acquisition Specialist:FRANDYHRadiology, Radiologist, - 04/07/[address] [address] XRay Report Signed Patient: VIC EASON MR#: [id number] : 1990 Acct:[id number] Age/Sex: 33 / M ADM Date: 04/05/23 Loc: RAD Attending Dr: Shaikh Margarita Swift Ordering Physician: Shaikh Jamison Avila Date of Service: 04/05/23 Procedure(s): XR foot LT min 3V Accession Number(s): [id number] cc: Shaikh Jamison Avila [facility] [place] [id number] Patient Name: VIC EASON MRN: [id number] date: 1990 Sex: M Assigned Patient Location: [facility] Current Patient Location: Accession/Order Number: [id number] Exam Date: 04/05/2023 15:45 Report Date: 04/07/2023 23:08 At the request of: SHAIKH MARGARITA Procedure: XR foot LT min 3V PROCEDURE: XR foot LT min 3V HISTORY: Left Foot Pain M79.672 ; medial arch pain COMPARISON: None. FINDINGS: BONES:No fracture, acute abnormality, or significant arthropathy. Tiny calcaneal plantar spur. SOFT TISSUES:No visible soft tissue swelling. EFFUSION:None visible. OTHER: Negative. XR/XR foot LT min 3V IMPRESSION: 1. No acute abnormality or significant degenerative changes. Electronically authenticated by: JOSE RAMIREZ Date: 04/07/2023 23:08 Dictated By: Jose Ramirez M.D. Signed By: 04/07/232309 DD/ 07 TD/TT: Land Acquisition Specialist: [facility] HealthcareRadiology Study observation (narrative)NOM[facility] HealthcareXR FOOT LT MIN 3VOrdered By: Radiologist Radiology on 10-12-8912[facility] Work Phone: GROUP A STREP CULTUREon 03-15-2022. pyogenes Ag Ql (Unsp spec)Culture Observations: NEGATIVE FOR GROUP A STREPTOCOCCUS.NormalThe Cleveland ClinicComment on above: Performed By: #### POCGLUC #### [facility] [address] [place] [address] Dr. Joe Irby SCREENon 37-37-4810ESEQM SCREEN ANegativeNormalNEGATIVEThe Cleveland ClinicComment on above:Performed By: #### PT, PTT #### [facility] [address] [place] [address] Dr. Joe Reyes PANEL (PCR)on 22-93-9090Vaqjqfvthz F 40/41Not detectedNormal NOT DETECTEDThe Cleveland ClinicComment on above:Performed By: #### GIPANEL #### [facility] [address] [place] [address] [address] Joe BorregoAstrovirusNot detectedNormalNOT DETECTEDThe [facility] Comment on above:Performed By: #### GIPANEL #### [facility] [address] [place] [address] Dr. Joe Perry. Diff toxin A/BNot detectedNormalNOT DETECTEDThe [facility] ClinicComment on above:Performed By: #### GIPANEL #### [facility] [address] [place] [address] [address] Joe EscalonapylobacterNot detectedNormalNOT DETECTEDThe [facility] Comment on above:Performed By: #### GIPANEL #### [facility] [address] [place] [address] Dr. Joe ZaldivaryptosporidiumNot detectedNormalNOT DETECTEDThe [facility] ClinicComment on above:Performed By: #### GIPANEL #### [facility] [address] [place] [address] Dr. Joe Irving. CayetanensisNot detectedNormalNOT DETECTEDThe [facility] ClinicComment on above:Performed By: #### GIPANEL #### [facility] [address] [place] [address] [address] Joe Perales Coli W156Yxq ApplicableNormalNot ApplicableThe Cleveland ClinicComment on above:Performed By: #### GIPANEL #### [facility] [address] [place] [address] Dr. Joe Perales histolyticaNot detectedNormalNOT DETECTEDThe [facility] Comment on above:Performed By: #### GIPANEL #### [facility] [address] [place] [address] [address] Joe Gonzales detectedNormalNOT DETECTEDThe [facility] ClinicComment on above:Performed By: #### SELENAANEL #### [facility] [address] [place] [address] [address] Joe Ray detectedNormalNOT DETECTEDThe [facility] ClinicComment on above:Performed By: #### GIPANEL #### [facility] [address] [place] [address] [address] Joe MadridPECDes detectedNormalNOT DETECTEDThe [facility] ClinicComment on above:Performed By: #### GIPANEL #### [facility] [address] [place] [address] [address] Joe Shaw detectedNormalNOT DETECTEDThe [facility] ClinicComment on above:Performed By: #### SELENAANEL #### [facility] [address] [place] [address] [address] Joe MorseliaNot detectedNormalNOT DETECTEDThe [facility] Comment on above:Performed By: #### SORAIDAL #### [facility] [address] [place] [address] [address] Joe Canales [facility] HOSPITALPASSBrown Memorial HospitalComment on above:Performed By: #### JEFFY #### [facility] [address] [place] [address] [address] Joe Olson SARA HEADERGI PANEL BACTERIAAccess Hospital Dayton Comment on above:Performed By: #### SELENAANEL #### [facility] [address] [place] [address] [address] Joe Olson ECOLIGI PANEL DIARRHEAGENIC E.COLI / SHIGELLAAccess Hospital DaytonComment on above:Performed By: #### SLEENAANEL #### [facility] [address] [place] [address] [address] Joe Lucas INFOSEE [facility] HospitalComment on above: Result Comment: EAEC- Enteroaggregative E. Coli EPEC- Enteropathogenic E. Coli ETEC- Enterotoxigenic E. Coli lt/st STEC- Shigella-like toxin-producing E. Coli stx1/stx2 EIEC- Shigella/Enteroinvasive E. ColiPerformed By: #### SELENAANEL #### [facility] [address] [place] [address] [address] Joe Lucas PARASITESGI PANEL [facility] Comment on above:Performed By: #### SELENAANEL #### [facility] [address] [place] [address] [address] Joe Lucas VIRUSGI PANEL VIRUSESAccess Hospital DaytonComment on above:Performed By: #### SORAIDAL #### [facility] [address] [place] [address] Dr. Joe Gandhirovirus GI/GIINot detectedNormalNOT DETECTEDThe [facility] ClinicComment on above:Performed By: #### SORAIDAL #### [facility] [address] [place] [address] Dr. Joe Childers. ShigelloidesNot detectedNormalNOT DETECTEDThe [facility] ClinicComment on above:Performed By: #### SORAIDAL #### [facility] [address] [place] [address] Dr. Joe BorregoRotavirus ANot detectedNormalNOT DETECTEDSt. [facility] Hospital Comment on above:Performed By: #### SORAIDAL #### [facility] [address] [place] [address] [address] Joe BorregoSalmonellaNot detectedNormalNOT DETECTEDThe [facility] Comment on above:Performed By: #### SELENAANEL #### [facility] [address] [place] [address] [address] Joe BorregoSapovirusNot detectedNormalNOT DETECTEDSt. [facility] Hospital Comment on above:Performed By: #### SORAIDAL #### [facility] [address] [place] [address] Dr. Joe BorregoSTECNot detectedNormalNOT DETECTEDThe [facility] ClinicComment on above:Performed By: #### GIPANEL #### [facility] [address] [place] [address] [address] Joe WilliamsonioNot detectedNormalNOT DETECTEDThe [facility] ClinicComment on above:Performed By: #### GIPANEL #### [facility] [address] [place] [address] [address] Joe Williamsonio CholeraNot detectedNormalNOT DETECTEDThe [facility] Comment on above:Performed By: #### GIPANEL #### [facility] [address] [place] [address] [address] Joe Sampson. EnterocoliticaNot detectedNormalNOT DETECTEDThe [facility] ClinicComment on above:Performed By: #### GIPANEL #### [facility] [address] [place] [address] Dr. Joe BorregoGLYCOHEMOGLOBIN A1Con 04-60-7727XFD RECOMMENDATIONSEE BELOWAvita Health System Ontario HospitalComment on above:Result Comment: ADA RECOMMENDED LIMIT 4.0 - 6.0 ADA THERAPEUTIC TARGET < 7.0 ACTION SUGGESTED > 7.0Performed By: #### POCGLUC #### [facility] [address] [place] [address] [address] Joe BorregoGlucose [Mass/Vol]180 mg/dLNoTriHealth Good Samaritan HospitalComment on above:Performed By: #### POCGLUC #### [facility] [address] [place] [address] [address] Joe BorregoHbA1c (Bld) [Mass fraction]7.9 %Critically high4.5-6.2The [facility] ClinicComment on above:Performed By: #### POCGLUC #### [facility] [address] [place] [address] [address] Joe BorregoLIPID PROFILEon 75-53-6113FFGD-HDL RATIO NORMSEE [facility] HospitalComsparrow ionia hospital on above:Result Comment: 3.3 - 4.4 LOW RISK 4.4 - 7.1 AVERAGE RISK 7.1 - 11.0 MODERATE RISK >11.0 HIGH RISKPerformed By: #### PT, PTT #### [facility] [address] [place] [address] [address] Joe BorregoCholesterol [Mass/Vol]144 mg/dLNormal<=200The [facility] Comment on above:Performed By: #### PT, PTT #### [facility] [address] [place] [address] [address] Joe BorregoCholesterol in HDL [Mass/Vol]34 mg/dLCritically vpx12-75Myv Cleveland ClinicComment on above:Performed By: #### PT, PTT #### [facility] [address] [place] [address] [address] Joe BorregoCholesterol in LDL [Mass/Vol]75.0 mg/dLAccess Hospital DaytonComment on above:Performed By: #### PT, PTT #### [facility] [address] [place] [address] Dr. Joe Nunnesterleda.total/Cholesterol in HDL [Mass ratio]4.2 {ratio} NormalThe Cleveland ClinicComment on above:Performed By: #### PT, PTT #### [facility] [address] [place] [address] Dr. Joe BorregoHDAshley NORMAL> or = 60 mg/dl - LOW CARDIOVASCULAR RISK <40 mg/dl - HIGH CARDIOVASCULAR RISKAccess Hospital DaytonComment on above:Performed By: #### PT, PTT #### [facility] [address] [place] [address] Dr. Joe BorregoLDL CALC NORMALSEE BELOWNoTriHealth Good Samaritan HospitalComment on above:Result Comment: <100 mg/dl OPTIMAL 100 - 129 mg/dl NEAR OR ABOVE OPTIMAL 130 - 159 mg/dl BORDERLINE HIGH 160 - 189 mg/dl HIGH >190 mg/dl VERY HIGH Performed By: #### PT, PTT #### [facility] [address] [address] [address] Joe BorregoTriglyceride [Mass/Vol]175 mg/dLCritically high<=150The [facility] ClinicComment on above:Performed By: #### PT, PTT #### [facility] [address] [place] [address] Dr. Joe CarlLDL CALC35.0 mg/dLAccess Hospital DaytonComment on above: Performed By: #### PT, PTT #### [facility] [address] [address] [address] Diaz ChangECHOCARDIO M/2D COMPLETEon [id number] M/2D COMPLETE Patient: VIC EASON Exam Date: 09/19/2021 : 1990 Gender:M Ordering : SHAIKH Karine AVILA . Admission #: [id number] Family : Order #: [id number] CLICK HERE TO VIEW EXAM ECHOCARDIOGRAM REPORT [...] Area(A4C): 14.70 cm2 Left Atrium Systolic Volume(A2C): 69996 mm3 Left Atrium Systolic Volume(A4C): 22495 mm3 Mitral Valve MV E to A [...] by: Jean-Pierre Garrison M.D. on 09/19/2021 at 17:17Access Hospital DaytonINSULIN FREE AND TOTALon 65-17-8553Qkjs Insulin4.8 uU/mLNGuernsey Memorial HospitalComment on above:Result Comment: Reference Range: Pubertal Children and Adults (fasting): 0 - 17Performed By: #### POCGLUC #### [facility] [address] [place] [address] Dr. Joe Pinto Insulin5.0 uU/mLNGuernsey Memorial HospitalComsparrow ionia hospital on above:Result Comment: Non-Diabetic: In the absence of insulin-binding antibodies, the free and total insulin assays [...] or approved by the Food and Drug Administration.Performed By: #### POCGLUC #### [facility] [address] [place] [address] Dr. Joe BorregoINSULIN AUTOANTIBODIESon 66-95-7064Gypilkn Antibodies<5.0Normal [facility] on above:Result Comment: This test is also known as insulin autoantibody or IAA. This test was developed and its performance characteristics determined by [facility]. It has not been cleared or approved by the Food and Drug Administration. Reference Range: <5.0 Negative > or = 5.0 PositivePerformed By: #### PT, PTT #### [facility] [address] [place] [address] Dr. Joe BorregoGLUTAMIN ACID DECARBOXYLASE (DAINA)on 31-21-6861SNZ-65<5.0Normal 0.0-5.0[facility] on above:Performed By: #### PT, PTT #### [facility] [address] [place] [address] Dr. Joe BorregoANTIPANCREATIC ISLET CELLSon 81-01-4237QOMGZIEOUISKPV RESULT CommentNormalThSt. Rita's Hospital on above:Result Comment: No monoclonality detected.Performed By: #### PT, PTT #### [facility] [address] [place] [address] Dr. Joe BorregoImmunoglobulin A, Qn, Zcjcd941 mg/tODdgejc04-329NtiSt. Francis HospitalComment on above:Performed By: #### PT, PTT #### [facility] [address] [place] [address] Dr. Joe BorregoImmunoglobulin G, Qn, Klwrp3969 mg/jIYfetoy265-7825KcnUniversity Hospitals Lake West Medical Centerment on above:Performed By: #### PT, PTT #### [facility] [address] [place] [address] Dr. Joe BorregoImmunoglobulin M, Qn, Nfyci757 mg/nIRaypjc33-222Cbo [facility] ClinicComment on above:Performed By: #### PT, PTT #### [facility] [address] [place] [address] Dr. Joe BorregoPOINT OF CARE GLUCOSEon 93-87-3973Mpovims [Mass/Vol]275 mg/dL Critically futm91-225Wvx [facility] ClinicComment on above:Performed By: #### POCGLUC #### [facility] [address] [place] [address] Dr. Joe BorregoGlucose [Mass/Vol]283 mg/dLCritically zhad94-858Dmo [facility] ClinicComment on above:Performed By: #### POCGLUC #### [facility] [address] [place] [address] Dr. Joe MalhotraC AUTO DIFFon 34-33-1186BUPG #0.0 103/ulNormal0.0-0.1The [facility] ClinicComment on above:Performed By: #### CBC #### [facility] [address] [place] [address] Dr. Joe BorregoBasophils/100 WBC (Bld)0.5 %Normal0.2-2.0[facility] Comment on above:Performed By: #### CBC #### [facility] [address] [place] [address] Dr. Joe Jackson #0.1 103/ulNormal0.0-0.7The [facility] on above: Performed By: #### CBC #### [facility] [address] [place] [address] Dr. Joe Madridosinophils/100 WBC (Bld)1.5 %Normal0.9-7.0[facility] Comment on above:Performed By: #### CBC #### [facility] [address] [place] [address] Dr. Joe Madridrythrocyte distribution width (RBC) [Ratio]13.0 %Ounxik47.0-15.0 The [facility] ClinicComment on above:Performed By: #### CBC #### [facility] [address] [place] [address] Dr. Joe BorregoHematocrit (Bld) [Volume fraction]40.7 %Critically low42.0-54.0 The [facility] ClinicComment on above:Performed By: #### CBC #### [facility] [address] [place] [address] Dr. Joe BorregoHemoglobin (Bld) [Mass/Vol]13.2 g/dLCritically low14.0-18.0The Brutus HospitalComment on above:Performed By: #### CBC #### [facility] [address] [place] [address] Dr. Joe He #0.02 10e3/ulNormal0.00-0.03The [facility] ClinicComment on above:Performed By: #### CBC #### [facility] [address] [place] [address] Dr. Joe He %0.3 %Normal0.0-0.5The [facility] ClinicComment on above: Performed By: #### CBC #### [facility] [address] [place] [address] Dr. Joe Juarez #3.0 103/ulNormal1.2-3.8The [facility] ClinicComment on above:Performed By: #### CBC #### [facility] [address] [place] [address] Dr. Joe Quiñonezhocytes/100 WBC (Bld)37.0 %Fbumke61.5-60.0The [facility] ClinicComment on above:Performed By: #### CBC #### [facility] [address] [place] [address] Dr. Joe ChristiansonUAL DIFF REQNONormalThe [facility] ClinicComment on above: Performed By: #### CBC #### [facility] [address] [place] [address] Dr. Joe Laws (RBC) [Entitic mass]28.4 fdCniktp22.9-34.0The [facility] ClinicComment on above:Performed By: #### CBC #### [facility] [address] [address] [address] Joe NogueraHC (RBC) [Mass/Vol]32.4 g/cZPluntb98.9-35.2The [facility] ClinicComment on above:Performed By: #### CBC #### [facility] [address] [address] [address] Joe NogueraV (RBC) [Entitic vol]87.7 pTBdgqvb96.0-94.0The Brutus HospitalComment on above:Performed By: #### CBC #### [facility] [address] [place] [address] Dr. Joe Liu #0.9 103/ulCritically high0.3-0.8[facility] Comment on above:Performed By: #### CBC #### [facility] [address] [place] [address] Dr. Joe Josueocytes/100 WBC (Bld)10.9 %Normal1.7-12.0[facility] Comment on above:Performed By: #### CBC #### [facility] [address] [address] [address] Joe Abrams #4.0 103/ulNormal1.4-6.5The [facility] ClinicComment on above:Performed By: #### CBC #### [facility] [address] [address] [address] Joe Mckeeutrophils/100 WBC (Bld)49.8 %Jyxnan57.0-75.0The [facility] ClinicComment on above:Performed By: #### CBC #### [facility] [address] [address] [address] Joe Romerolet mean volume (Bld) [Entitic vol]11.6 fLNormal9.5-13.5The [facility] ClinicComment on above:Performed By: #### CBC #### [facility] [address] [address] [address] Joe BorregoPLT294 103/zrEyptqc643-118Vca [facility] Hospitalment on above: Performed By: #### CBC #### [facility] [address] [place], [place] [address] Dr. Joe BorregoRBC4.64 106/ulCritically low4.70-6.10The [facility] on above:Performed By: #### CBC #### [facility] [address] [place], [place] [address] Dr. Joe BorregoWBC8.0 103/ulNormal4.0-11.0The [facility] on above: Performed By: #### CBC #### [facility] [address] [place], [place] [address] Dr. Joe BorregoCovid-19 PCR ([facility])on 59-00-5515DGVR-CoV-2 (COVID-19) RNA ASHWIN+probe Ql (Unsp spec)Not detectedNormalNOT DETECTEDThe [facility] Comment on above:Result Comment: When diagnostic testing is negative, the possibility of a false negative should be considered in the context of a patient's recent exposures and the presence of clinical signs and symptoms consistent with SARS-CoV-2. This test is not yet approved or cleared by the [place] Food and Drug Administration (FDA). This test was developed by [employer], [place], [place]. The performance characteristics of this test were validated by [facility]. The results are not intended to be used as the sole means for clinical diagnosis or patient management decisions. [facility] is authorized under Clinical Laboratory Improvement Amendments [...] for this test is supported by the Quarantine Officer of Health and Human Service's declaration that circumstances exist to justify the emergency use of in vitro diagnostics for the detection and/or diagnosis of the virus that causes COVID-19. This EUA will remain in effect for the duration of the COVID-19 declaration justifying emergency of IVDs, unless it is terminated or revoked by the FDA (after which the test may no longer be used).Performed By: #### PT, PTT #### [facility] [address] [address] [address] Joe BorregoGLYCOHEMOGLOBIN A1Con 77-44-8705UGR RECOMMENDATIONADA THERAPEUTIC TARGET 6.0 - 7.0 ACTION SUGGESTED > 7.0NoTriHealth Good Samaritan HospitalComment on above:Performed By: #### PT, PTT #### [facility] [address] [place] [address] Dr. Joe BorregoGlucose [Mass/Vol]332 mg/dLAccess Hospital DaytonComment on above:Performed By: #### PT, PTT #### [facility] [address] [place] [address] Dr. Joe BorregoHbA1c (Bld) [Mass fraction]13.2 %Critically high<=6.0St. Francis HospitalComment on above:Performed By: #### PT, PTT #### [facility] [address] [place] [address] Dr. Joe BorregoPOINT OF CARE GLUCOSEon 16-62-9664Ofkvdua [Mass/Vol]138 mg/dL Critically pykf02-392EmiSt. Francis HospitalComment on above:Performed By: #### POCGLUC #### [facility] [address] [place] [address] Dr. Joe BorregoGlucose [Mass/Vol]276 mg/dLCritically wkhq08-405HnlSt. Francis HospitalComment on above:Performed By: #### POCGLUC #### [facility] [address] [place] [address] Dr. Joe BorregoGlucose [Mass/Vol]170 mg/dLCritically smzd94-323Lxm [facility] ClinicComment on above:Performed By: #### POCGLUC #### [facility] [address] [place] [address] Dr. Joe BorregoGlucose [Mass/Vol]277 mg/dLCritically wpdj17-268DigSt. Francis HospitalComment on above:Performed By: #### POCGLUC #### [facility] [address] [place] [address] Dr. Joe BorregoGlucose [Mass/Vol]327 mg/dLCritically mkuj54-484Mkv [facility] ClinicComment on above:Performed By: #### POCGLUC #### [facility] [address] [place] [address] Dr. Joe BorregoGlucose [Mass/Vol]347 mg/dLCritically zkai84-664Mld [facility] ClinicComment on above:Performed By: #### POCGLUC #### [facility] [address] [place] [address] Dr. Joe BorregoGlucose [Mass/Vol]361 mg/dLCritically cyhn97-238Vkw [facility] ClinicComment on above:Performed By: #### POCGLUC #### [facility] [address] [place] [address] Dr. Joe BorregoPROF CHEM 8 (BAS METB)on 34-61-6732Ufvsp gap [Moles/Vol]13.3 mmol/LNormalThe [facility] ClinicComment on above:Performed By: #### PT, PTT #### [facility] [address] [place] [address] Dr. Joe BorregoCalcium [Mass/Vol]8.6 mg/dLNormal8.4-10.2[facility] Comment on above:Performed By: #### PT, PTT #### [facility] [address] [place] [address] Dr. Joe BorregoChloride [Moles/Vol]102 mmol/EMyqdej22-724Bgo [facility] Comment on above:Performed By: #### PT, PTT #### [facility] [address] [place] [address] Dr. Joe BorregoCO2 [Moles/Vol]26.3 mmol/BPfsewm85.0-30.0[facility] Comment on above:Performed By: #### PT, PTT #### [facility] [address] [place] [address] Dr. Joe BorregoCreatinine [Mass/Vol]1.10 mg/dLNormal0.66-1.25The [facility] ClinicComment on above:Performed By: #### PT, PTT #### [facility] [address] [address] [address] Joe MadridGFR-AF COOK ISLANDER>60Normal>=60The [facility] ClinicComment on above:Performed By: #### PT, PTT #### [facility] [address] [place] [address] Dr. Joe MadridGFR-NON AF COOK ISLANDER>60Normal>=60The [facility] ClinicComment on above:Performed By: #### PT, PTT #### [facility] [address] [place] [address] Dr. Joe BorregoGlucose [Mass/Vol]357 mg/dLCritically lbhg72-931Rxb [facility] on above:Performed By: #### PT, PTT #### [facility] [address] [place] [address] Dr. Joe BorregoPotassium [Moles/Vol]3.6 mmol/LNormal3.4-5.0[facility] Comment on above:Performed By: #### PT, PTT #### [facility] [address] [place] [address] Dr. Joe BorregoSodium [Moles/Vol]138 mmol/NLvueva997-295Qsd [facility] Comment on above:Performed By: #### PT, PTT #### [facility] [address] [place] [address] Dr. Joe BorregoUrea nitrogen [Mass/Vol]10.0 mg/dLNormal9.0-20.0The [facility] ClinicComment on above:Performed By: #### PT, PTT #### [facility] [address] [place] [address] Dr. Joe BorregoUrea nitrogen/Creatinine [Mass ratio]9.1 mg/mgNormalThe [facility] ClinicComment on above:Performed By: #### PT, PTT #### [facility] [address] [place] [address] Dr. Joe Gates AUTO DIFFon 58-33-6068NMOE #0.0 103/ulNormal0.0-0.1The [facility] ClinicComment on above:Performed By: #### PT, PTT #### [facility] [address] [place] [address] Dr. Joe BorregoBasophils/100 WBC (Bld)0.5 %Normal0.2-2.0[facility] Comment on above:Performed By: #### PT, PTT #### [facility] [address] [place] [address] Dr. Joe Jackson #0.0 103/ulNormal0.0-0.7The [facility] ClinicComment on above: Performed By: #### PT, PTT #### [facility] [address] [place] [address] Dr. Joe Madridosinophils/100 WBC (Bld)0.5 %Critically low0.9-7.0The [facility] ClinicComment on above:Performed By: #### PT, PTT #### [facility] [address] [place] [address] Dr. Joe Madridrythrocyte distribution width (RBC) [Ratio]12.8 %Wsajnu03.0-15.0 The [facility] ClinicComment on above:Performed By: #### PT, PTT #### [facility] [address] [place] [address] Dr. Joe BorregoHematocrit (Bld) [Volume fraction]44.2 %Buiafq18.0-54.0The [facility] ClinicComment on above:Performed By: #### PT, PTT #### [facility] [address] [place] [address] Dr. Joe BorregoHemoglobin (Bld) [Mass/Vol]14.4 g/fATubtzf43.0-18.0The [facility] ClinicComment on above:Performed By: #### PT, PTT #### [facility] [address] [place] [address] Dr. oJe He #0.03 10e3/ulNormal0.00-0.03The [facility] ClinicComment on above:Performed By: #### PT, PTT #### [facility] [address] [place] [address] Dr. Joe BorregoIG %0.3 %Normal0.0-0.5The [facility] ClinicComment on above: Performed By: #### PT, PTT #### [facility] [address] [place] [address] Dr. Joe Juarez #3.0 103/ulNormal1.2-3.8The [facility] ClinicComment on above:Performed By: #### PT, PTT #### [facility] [address] [place] [address] Dr. Joe Quiñonezhocytes/100 WBC (Bld)34.2 %Koneat19.5-60.0The [facility] ClinicComment on above:Performed By: #### PT, PTT #### [facility] [address] [place] [address] Dr. Joe Stapleton DIFF REQNONormalThe [facility] ClinicComment on above: Performed By: #### PT, PTT #### [facility] [address] [place] [address] Dr. Joe Laws (RBC) [Entitic mass]28.2 qdKndrop77.9-34.0The [facility] ClinicComment on above:Performed By: #### PT, PTT #### [facility] [address] [place] [address] Dr. Joe Noguera (RBC) [Mass/Vol]32.6 g/fITlfhcw07.9-35.2The [facility] ClinicComment on above:Performed By: #### PT, PTT #### [facility] [address] [place] [address] Dr. Joe Noguera (RBC) [Entitic vol]86.7 qNDuvbaq78.0-94.0The [facility] ClinicComment on above:Performed By: #### PT, PTT #### [facility] [address] [place] [address] Dr. Joe Liu #0.9 103/ulCritically high0.3-0.8[facility] Comment on above:Performed By: #### PT, PTT #### [facility] [address] [place], [place] [id number] Dr. Joe Josueocytes/100 WBC (Bld)10.3 %Normal1.7-12.0[facility] Comment on above:Performed By: #### PT, PTT #### [facility] [address] [place] [address] Dr. Joe MckeeUT #4.8 103/ulNormal1.4-6.5The [facility] ClinicComment on above:Performed By: #### PT, PTT #### [facility] [address] [place] [address] Dr. Joe Mckeeutrophils/100 WBC (Bld)54.2 %Iqrzys32.0-75.0The [facility] ClinicComment on above:Performed By: #### PT, PTT #### [facility] [address] [place] [address] Dr. Joe BorregoPlatelet mean volume (Bld) [Entitic vol]12.0 fLNormal9.5-13.5The [facility] ClinicComment on above:Performed By: #### PT, PTT #### [facility] [address] [place] [address] Dr. Joe BorregoPLT331 103/utMkeutl904-208Jxc [facility] on above: Performed By: #### PT, PTT #### [facility] [address] [place] [address] Dr. Joe BorregoRBC5.10 106/ulNormal4.70-6.10The [facility] on above:Performed By: #### PT, PTT #### [facility] [address] [place] [address] Dr. Joe BorregoWBC8.9 103/ulNormal4.0-11.0The [facility] on above: Performed By: #### PT, PTT #### [facility] [address] [place] [address] Dr. Joe BorregoPROF 14(COMP METB)on 08-11-6865Cjinzyq [Mass/Vol]4.5 g/dLNormal 3.5-5.0The [facility] on above:Performed By: #### PT, PTT #### [facility] [address] [address] [address] Joe BorregoAlbumin/Globulin [Mass ratio]1.0 {ratio}NormalThe [facility] ClinicComment on above:Performed By: #### PT, PTT #### [facility] [address] [address] [address] Joe German [Catalytic activity/Vol]86 U/VThdwox87-041Pmq [facility] Hospitalment on above:Performed By: #### PT, PTT #### [facility] [address] [address] [address] Joe Moon [Catalytic activity/Vol]33 U/MAoepnq17-15Gtl [facility] on above:Performed By: #### PT, PTT #### [facility] [address] [address] [address] Joe Arevaloon gap [Moles/Vol]14.4 mmol/LNormalThe [facility] Comment on above:Performed By: #### PT, PTT #### [facility] [address] [address] [address] Joe BorregoAST [Catalytic activity/Vol]11 U/LCritically mmc21-19Kxw [facility] on above:Performed By: #### PT, PTT #### [facility] [address] [address] [address] Joe BorregoBilirubin [Mass/Vol]0.7 mg/dLNormal0.2-1.3[facility] Comment on above:Performed By: #### PT, PTT #### [facility] [address] [address] [address] Joe BorregoCalcium [Mass/Vol]9.7 mg/dLNormal8.4-10.2[facility] Comment on above:Performed By: #### PT, PTT #### [facility] [address] [address] [address] Joe BorregoChloride [Moles/Vol]96 mmol/LCritically wip05-760Yzv Jerry HospitalComment on above:Performed By: #### PT, PTT #### [facility] [address] [address] [address] Joe BorregoCO2 [Moles/Vol]29.5 mmol/KTngwon69.0-30.0[facility] Comment on above:Performed By: #### PT, PTT #### [facility] [address] [address] [address] Joe BorregoCreatinine [Mass/Vol]1.38 mg/dLCritically high0.66-1.25The [facility] ClinicComment on above:Performed By: #### PT, PTT #### [facility] [address] [place] [address] Dr. Joe MadridGFR-AF COOK ISLANDER>60Normal>=60The [facility] ClinicComment on above:Performed By: #### PT, PTT #### [facility] [address] [place] [address] Dr. Joe MadridGFR-NON AF IEWLPQXX56 mL/min/1.56s0Nucgon>=60The [facility] ClinicComment on above:Performed By: #### PT, PTT #### [facility] [address] [place] [address] Dr. Joe BorregoGlobulin (S) [Mass/Vol]4.6 g/dLNormalThe [facility] ClinicComment on above:Performed By: #### PT, PTT #### [facility] [address] [address] [address] Joe BorregoGlucose [Mass/Vol]476 mg/dLCritically mhzw71-966Vgd [facility] ClinicComment on above:Performed By: #### PT, PTT #### [facility] [address] [address] [address] Joe BorregoPotassium [Moles/Vol]3.9 mmol/LNormal3.4-5.0[facility] Comment on above:Performed By: #### PT, PTT #### [facility] [address] [place] [address] Dr. Joe BorregoProtein [Mass/Vol]9.1 g/dLCritically high6.1-8.2St. Francis HospitalComment on above:Performed By: #### PT, PTT #### [facility] [address] [place] [address] Dr. Joe BorregoSolacieum [Moles/Vol]136 mmol/LCritically kho854-944Won [facility] ClinicComment on above:Performed By: #### PT, PTT #### [facility] [address] [place] [address] Dr. Joe BorregoUrea nitrogen [Mass/Vol]13.0 mg/dLNormal9.0-20.0The [facility] ClinicComment on above:Performed By: #### PT, PTT #### [facility] [address] [place] [address] Dr. Joe Parra nitrogen/Creatinine [Mass ratio]9.4 mg/mgNoTriHealth Good Samaritan HospitalComment on above:Performed By: #### PT, PTT #### [facility] [address] [place] [address] Dr. Joe Coughlin 60-12-1634ZQI Coag (PPP) [Relative time]0.97 {INR} NormalThe [facility] ClinicComsparrow ionia hospital on above:Performed By: #### PT, PTT #### [facility] [address] [place] [address] Dr. Joe Angelo GUIDELINESSEE BELOWAccess Hospital DaytonComment on above:Result Comment: DESIRED INR: 2.0 - 3.0 CONDITIONS NOT LISTED BELOW 2.5 - 3.5 FOR PROSTHETIC HEART VALVE REPLACEMENT 2.5 - 3.5 RECURRENT THROMBOSIS Performed By: #### PT, PTT #### [facility] [address] [place] [address] Dr. Joe BorregoPT Coag (PPP) [Time]10.5 sNormal9.0-11.6[facility] Comment on above:Performed By: #### PT, PTT #### [facility] [address] [place] [address] Dr. Joe June 87-95-5536iVSF Coag (Bld) [Time]26.2 lYszynh30.3-36.2St. Francis HospitalComment on above:Performed By: #### PT, PTT #### [facility] [id number] [address] Joe BorregoXR NECK SOFT TISSUEon 30-01-2419NL NECK SOFT TISSUEEXAM: XR NECK SOFT TISSUE HISTORY: Foreign body COMPARISON: None. TECHNIQUE: Frontal and lateral views of the neck FINDINGS: No radiopaque foreign body is seen. The prevertebral soft tissues are unremarkable. Imaged lung apices are clear. No acute bony abnormality is seen. Cervical alignment is normal. IMPRESSION: No radiopaque foreign body is seen. Electronically authenticated by: ELISEO BUTLER Date: 2021-07-10 21:59[facility] Vital Signs Date TimeVital SignValuePerforming GqdejighmMghjybqd22-85-5163 15:18-0500Body kattzc770.64 cmLisa Aichholz [employer]ER[employer] Work Phone: [phone] [place], [place] 7282111-11-2025 15:18-0500 Body mass index (BMI) [Ratio]31.4 kg/m2Lisa Aichholz [employer] Work Phone: [phone] [place], [place] 7282111-11-2025 15:18-0500 Body wrbotpqcgfj11.5 [degF]Catherine Aichholz [employer] Work Phone: [phone] [place], [place] 7282111-11-2025 15:18-0500 Body yuhoix68.5 kgLisa Aichholz [employer] Work Phone: [phone] [place], [place] 7282111-11-2025 15:18-0500 Diastolic blood hybgpfes77 mm[Hg]Catherine Aichholz [employer] Work Phone: [phone]11-11-2025 15:18-0500 Heart rate73 /minLisa Aichholz [employer] Work Phone: [phone] [place], [place] 7282111-11-2025 15:18-0500 Respiratory rate18 /minLisa Aichholz DRYWALL HANGER-C Work Phone: [facility]11-11-2025 15:18-0500 SaO2% (BldA) [Mass fraction]98 %Catherine Ricardo DRYWALL HANGER-C Work Phone: [facility]11-11-2025 15:18-0500 Systolic blood mm[Hg]Catherine Ricardo DRYWALL HANGER-C Work Phone: [facility]04-08-2025 13:04-0400 Body mass index (BMI) [Ratio]31.11 kg/m2Catherine Ardonryan DRYWALL HANGER Work Phone: [facility] HospitalIxmwfhuurn61-91-5369 13:04-0400Body temperature 98.4 [degF]Catherine Ardonryan DRYWALL HANGER Work Phone: [facility] HospitalWbrzgyoxoy39-52-4585 13:04-0400Body mrumru71.08 kgCatherine Ardonryan DRYWALL HANGER Work Phone: [facility] HospitalHazcccqfbq24-28-9836 13:04-0400Diastolic blood luvttzwx51 mm[Hg]Catherine Ardonryan DRYWALL HANGER Work Phone: [facility] HospitalXqwsgznhcm82-48-5576 13:04-0400Heart rate81 /min Catherine Tatumelsie DRYWALL HANGER Work Phone: [facility] HospitalLixbulrrij00-33-7460 13:04-0400Respiratory rate18 /minLisa Tatumelsie DRYWALL HANGER Work Phone: [facility] HospitalIycvkxxsss69-99-8661 13:04-9321EsQ3% (BldA) [Mass fraction]98 %Catherine Ardonryan DRYWALL HANGER Work Phone: [facility] HospitalNpxtugasgd01-29-0832 13:04-0400Systolic blood mm[Hg]Catherine Tatumelsie DRYWALL HANGER Work Phone: [facility] HospitalHbtfzwgdro26-42-5240 14:07-0400Body oioouw061.2 cmRuby Gil DRYWALL HANGER Work Phone: [facility] HospitalAwajyyotkl87-33-8257 14:07-0400Body mass index (BMI) [Ratio]31.01 kg/g2NspxxarvRuby Gil DRYWALL HANGER Work Phone: [facility] HospitalSohbocvqpv18-72-9433 14:07-0400Body temperature 97.59 [degF]Ruby iGl DRYWALL HANGER Work Phone: [facility] HospitalHvbutwrnbv33-91-7788 14:07-0400Body gsvoju89.81 kgBrly Gil DRYWALL HANGER Work Phone: no[facility] HospitalZiewerhfsd18-33-4590 14:07-0400Diastolic blood iorsxixz71 mm[Hg]Ruby Gil DRYWALL HANGER Work Phone: [facility] HospitalBhjhlvqupz43-78-8968 14:07-0400Heart rate89 /min Ruby Gil DRYWALL HANGER Work Phone: noms HealthcareComment on above:95% P758-20-9316 14:07-0400Systolic blood iysyisnl212 mm[Hg]Ruby Perryk DRYWALL HANGER Work Phone: [facility] Encounters Encounter DateEncounter TypeCare ProviderFacilityStart: 03-09-2025 End: 25-63-7858fbzdnvgtgqMdur Rosalva Ricardo DRYWALL HANGER-C Work Phone: -[facility] ClydeStart: 03-09-2025 End: 84-81-5206Uksqiwa encounter procedureLisa Rosalva Ricardo DRYWALL HANGER-C-[facility] [place] Work Phone: Start: 10-27-2024 End: 41-98-9585Yfiuvquce encounterLisa Davion DRYWALL HANGER Work Phone: [facility] CWM FMStart: 08-18-2024 End: 24-73-8116Yicrpetyo encounterTyler Alt RNNOMS FNR FMStart: 08-14-2024 ambulatoryFacility:EU [place]walkStart: 08-11-2024 End: 61-54-2326Yvcpzg OnlyCatherine Ricardo DRYWALL HANGER Work Phone: [facility] CWM FMComment on above:Left varicocele (Primary Dx); Testicular pain, leftStart: 08-10-2024 End: 17-88-7242Xqzwhuaew Result EncounterCatherine Ricardo DRYWALL HANGER Work Phone: [facility] External Department UnsolicitedStart: 08-10-2024 End: 61-66-9576Xeksxqmpe Result EncounterLisa Ricardo DRYWALL HANGER Work Phone: [facility] External Department UnsolicitedStart: 08-07-2024 End: 18-64-4065XhxprhDuqw Aichholz DRYWALL HANGER Work Phone: [facility] CWM FMComment on above:Type 2 diabetes mellitus without complication, without long-term current use of insulin (Primary Dx) Start: 08-04-2024 End: 05-14-3582Szazfy flowsAshwin Ardonanitaz DRYWALL HANGER Work Phone: [facility] CWM FMStart: 08-04-2024 End: 98-87-0463Ewnyvu flowsAshwin Ardonholz DRYWALL HANGER Work Phone: [facility] CWM FMStart: 08-04-2024 End: 49-77-6880zwdjfypmxqUVUD JACKIEVeronicaHOLZNot AvailableStart: 08-04-2024 End: 48-10-9000Zimzue outpatient visit 25 minutesLisa Ardonryan DRYWALL HANGER Work Phone: [facility] CWM FMComment on above:Type 2 diabetes mellitus without complication, without long-term current use of insulin (Primary Dx); Type 2 diabetes mellitus without complications; Testicular pain, left; Pain of left lower extremityStart: 01-13-2024 End: 31-76-8872xauchjrinsNFYLGCOF FITZPATRICKNot AvailableStart: 01-13-2024 End: 19-86-9488Tcfekk flowsheetBrittany Gil DRYWALL HANGER Work Phone: NOZP CWM FMStart: 01-13-2024 End: 58-26-0824Jymvma flowsheetRuby Richzpatrick DRYWALL HANGER Work Phone: [facility] CWM FMStart: 01-13-2024 End: 12-99-6519Rkcvhk outpatient visit 15 minutesRuby Richzpatrick DRYWALL HANGER Work Phone: [facility] CWM FMComment on above:Type 2 diabetes mellitus without complication, without long-term current use of insulin (CMS/HCC) (P rimary Dx); Testicular pain, left; Blood in semen; Wellness examination; Cerumen debris on tympanic membrane of both earsStart: 01-13-2024 End: 51-32-0413Kevkgav encounter statusRuby Richzpatrick DRYWALL HANGER Work Phone: noms HealthcareStart: 12-25-2023 End: 08-43-3329JpszbxXqvefj Gurrola MANRAIMUNDO CWM IMComment on above:Type 2 diabetes mellitus without complication, without long-term current use of insulin (CMS/HCC)Start: 04-08-2023 End: 78-57-3884Vgrywqlee Result EncounterSnataliia Avila MD Work Phone: [facility] External Department UnsolicitedStart: 04-08-2023 End: 96-75-6138Vnggxptwz Result EncounterSnataliia Avila MD Work Phone: [facility] External Department UnsolicitedStart: 04-07-2023 End: 44-37-1476Yulbibkmo Result EncounterSnataliia Avila MD Work Phone: [facility] External Department UnsolicitedStart: 04-07-2023 End: 01-33-6897Lkxzooncw Result EncounterSnataliia Avila MD Work Phone: [facility] External Department UnsolicitedStart: 03-22-2022 End: 18-52-0746osjtzfkozgJPORPC H FAWWADFacility:L8Jvomp: 03-15-2022 End: 55-38-2405rhqcpspldoUZESBU H FAWWADFacility:B3Nqljv: 01-10-2022 End: 03-88-7832fvzygjmmfzBVQWIA H FAWWADFacility:L9Hthge: 11-29-2021 End: 93-95-2557sztdshrjbgRPOBPJ H FAWWADFacility:U5Dnceo: 76-24-5958bqcmcpuecs SHAIKH Veronica REDDYWWADFacility:K1Xnsug: 09-20-2021 End: 19-12-6454izdjxflgexVRPVAS H FAWWADFacility:V5Rqszk: 07-20-2021 End: 54-10-1574fheyofkvumTDWIXL H FAWWADFacility:U0Elitw: 07-11-2021 End: 75-96-4916vekjbjafyvMT NONE LISTED REQUESTFacility:H1 Procedures DateProcedureProcedure DetailPerforming ClinicianStart: 89-86-1760Rj scrotum & contentsLisa Davion DRYWALL HANGER Work Phone: Start: 84-90-4957Muosohxpev glycosylated k2vBujq Davion DRYWALL HANGER Work Phone: Start: 07-30-6499Enudj wrist complete minimum 3 views Shaikh Margarita ELIAS Work Phone: Start: 10-89-9464NM FOOT LT MIN 3VSnataliia Avila MD Work Phone: Plan of Treatment DateCare ActivityDetailAuthorStart: 64-01-8802Slmxnjqt screeningDiabetes: Retinopathy ScreeningNOMS HealthcareStart: 29-26-7622Pvwjzdirg vaccinationNOMS HealthcareStart: 49-26-7219Fyfzjhtmjv A1c measurementDiabetes: Hemoglobin A1C NOMS HealthcareStart: 09-17-2024 End: 77-41-6204Najtdmb encounter wcgmyyrmg33/22/2025 11:00 AM EDT Office Visit [facility] [address] [place] [address] Catherine Ricardo NP [address] [place] [id number] [facility]ISA FMStart: 08-04-2024 End: 88-24-8701RVY W Auto Differential panel - BloodCBC and differential Lab Routine Type 2 diabetes mellitus without complication, without long-term current use of insulin ([facility]) Expected: 08/04/2024 (Approximate), Expires: 08/04/2025[facility] Work Phone: Comment on above:Expected: 08/04/2024 (Approximate), Expires: 08/04/2025Start: 08-04-2024 End: 44-59-3449Kpqguwvzcekrz metabolic 2000 panel - Serum or PlasmaComprehensive metabolic panel Lab Routine Type 2 diabetes mellitus without complication, without long-term current use of insulin ([facility]) Expected: 08/04/2024 (Approximate), Expires: 08/04/2025NOIL HealthcareComment on above:Expected: 08/04/2024 (Approximate), Expires: 08/04/2025Start: 08-04-2024 End: 32-81-2176Koipvfubui A1c/Hemoglobin.total in BloodHemoglobin A1c Lab Routine Type 2 diabetes mellitus without complication, without long-term current use of insulin Expected: 08/04/2024 (Approximate), Expires: 08/04/2025[facility] HealthcareComment on above:Expected: 08/04/2024 (Approximate), Expires: 08/04/2025Start: 08-04-2024 End: 56-44-0671Opdjc 1996 panel - Serum or PlasmaLipid panel Lab Routine Type 2 diabetes mellitus without complication, without long-term current use of insulin ([facility]) Expected: 08/04/2024 (Approximate), Expires: 08/04/2025[facility] HealthcareComment on above:Expected: 08/04/2024 (Approximate), Expires: 08/04/2025Start: 08-04-2024 End: 66-04-0316Rlbhvzaei [Mass/volume] in Serum or PlasmaMagnesium Lab Routine Pain of left lower extremity Expected: 08/04/2024 (Approximate), Expires: 11/2025[facility] HealthcareComment on above:Expected: 08/04/2024 (Approximate), Expires: 08/04/2025Start: 08-04-2024 End: 74-36-1888Icmdewhbfytw/Creatinine panel in random UrineMicroalbumin / creatinine, urine ratio Lab Routine Type 2 diabetes mellitus without complication, without long-term current use of insulin ([facility]) Expected: 08/04/2024 (Approximate), Expires: 08/04/2025[facility] HealthcareComment on above: Expected: 08/04/2024 (Approximate), Expires: 08/04/2025Start: 08-04-2024 End: 54-66-6309Chvpbvdrby complete panel - UrineUrinalysis with reflex microscopic (clean catch) Lab Routine Type 2 diabetes mellitus without compli cation, without long-term current use of insulin ([facility]) Expected: 08/04/2024 (Approximate), Expires: 08/04/2025[facility] HealthcareComment on above:Expected: 08/04/2024 (Approximate), Expires: 08/04/2025Start: 08-04-2024 End: 95-53-2905FN Scrotum and testicleUS scrotum Imaging Routine Testicular pain, left Expected: 08/04/2024, Expires: 08/04/2025[facility] HealthcareComment on above:Expected: 08/04/2024, Expires: 08/04/2025Start: 02-10-2024 End: 11-14-5371Vdsbkst encounter etfxpiuyg03/14/2024 2:00 PM EDT Office Visit [facility] [address] [place] [address] Ruby Gil NP [address] [place] [address] NOMElodia BREWSTER FMStart: 01-13-2024 End: 02-07-3780TRC W Auto Differential panel - BloodCBC and differential Lab Routine Type 2 diabetes mellitus without complication, without long-term current use of insulin ([facility]) Expected: 01/13/2024 (Approximate), Expires: 01/12/2025NO[facility] HealthcareComment on above:Expected: 01/13/2024 (Approximate), Expires: 01/12/2025Start: 01-13-2024 End: 63-57-2945Eashthxmxctyr metabolic 2000 panel - Serum or PlasmaComprehensive metabolic panel Lab Routine Type 2 diabetes mellitus without complication, without long-term current use of insulin ([facility]) Expected: 01/13/2024 (Approximate), Expires: 01/12/2025NOMS HealthcareComment on above:Expected: 01/13/2024 (Approximate), Expires: 01/12/2025Start: 01-13-2024 End: 75-83-4102Egfvpoptjj A1c/Hemoglobin.total in BloodHemoglobin A1c Lab Routine Type 2 diabetes mellitus without complication, without long-term current use of insulin ([facility]) Expected: 01/13/2024 (Approximate), Expires: 01/12/2025 NOMS HealthcareComment on above:Expected: 01/13/2024 (Approximate), Expires: 01/12/2025Start: 01-13-2024 End: 28-60-9067Htvwu 1996 panel - Serum or PlasmaLipid panel Lab Routine Wellness examination Expected: 01/13/2024 (Approximate), Expires: 01/12/2025NOIL HealthcareComment on above:Expected: 01/13/2024 (Approximate), Expires: 01/12/2025Start: 01-13-2024 End: 14-43-8887Zrwkjak encounter ykwpzklsd94/16/2024 2:00 PM EDT [facility] Visit [facility] [address] [place] [address] Ruby Gil NP [address] [place] [address] [facility] FMStart: 01-13-2024 End: 34-52-7560WKU W/REFLEX TO FT4TSH W/REFLEX TO FT4 Lab Routine Wellness examination Expected: 01/13/2024 (Approximate), Expires: 01/12/2025NOMS HealthcareComment on above:Expected: 01/13/2024 (Approximate), Expires: 01/12/2025Start: 01-13-2024 End: 28-70-2384HY Scrotum and testicleUS scrotum Imaging Routine Testicular pain, left Blood in semen Expected: 01/13/2024, Expires: 01/12/2025[facility] HospitalComment on above:Expected: 01/13/2024, Expires: 01/12/2025Start: 14-17-3182Vgduhhkit vaccinationInfluenza Vaccine (#1)[facility] HospitalStart: 98-60-4246Xbkvubucqi A1c measurementDiabetes: Hemoglobin Q5CCMHPSoutheast [facility] Hospital Start: 37-50-1225Bkrho screening for proteinDiabetes: Urine Protein Screening [facility] Networkprehensive [facility] 2000 panel - Serum or PlasmaRiverside Methodist HospitalMicroalbumin/Creatinine panel in random UrineMicroalbumin / creatinine urine ratio Lab Routine Type 2 diabetes mellitus without complication, without long-term current use of insulin ([facility]) Ordered: 01/13/2024[facility] Work Phone: Comment on above:Ordered: 01/13/2024[facility] Payers DatePayer CategoryPayerPolicy [id number] [employer] [id number] 2023-Present [phone] [address] [address] [place] [id number] 14-54-9073Xogvhmm Health Insurance [id number] 2.16.840.1.216785.3.57[id number] 2.16.840.1.587329.3.57[id number] 2.16.840.1.295606.3.57[id number] 2.16.840.1.175275.3.57[id number] 2.16.840.1.941968.3.57[id number] 2.16.840.1.023037.3.57[id number] 2.16.840.1.386728.3.57[id number] 2.16.840.1.430480.3.57[id number] 2.16.840.1.410861.3.57[id number] 2.16.840.1.400975.3.579.2.816191-49-5571Gqhy-[id number] Social History DateTypeDetailFacilityStart: 04-02-2023 End: 87-41-3915Baxqqfo smoking status NHISEx-smokerNOMS Healthcare End: 65-15-7923Fyjptta of tobacco useCurrent smokerNOMS Healthcare End: 41-21-2517Djmidbq of tobacco useCigarette SmokerNOMS HealthcareStart: 04-02-2023 End: 49-38-2149Ixgtnrf use and exposureSmokeless tobacco non-userNOMS Healthcare Start: 04-02-2023 End: 66-82-6094Tgutfljjx beverage intakeCurrent drinker of alcohol (finding)[facility]S HealthcareStart: 05-28-2023 End: 32-44-3100Erwosbl of Social functionNOMS HealthcareStart: 05-28-2023 End: 75-29-3460Yyafljm use panelNOMS HealthcareStart: 18-81-2421Prynwor Comment SOCIALNOMS HealthcareStart: 80-50-7301Pii assigned at birthNot on fileNOMS HealthcareStart: 16-73-9665OaxBnfjEKGQ HealthcareTobasurgical [facility] [place] [facility] [place] smoking status NHIS Unknown if ever smokedOhiohealth Work Phone: SexMale (finding)[facility] Start: 75-87-7667Cat Assigned At [facility] Medical Equipment Procedure CodeEquipment CodeEquipment Original TextEquipment IdentifierDates [id number]: 08-04-2024 End: 11-15-2024 Functional Status KpdiZfdvvfhzthZyibvyWbfnlvsp92-89-7898Nnfuinv Health Questionnaire 2 item (PHQ- 2) [Reported][facility] Clinical Notes 07-11-2021 to 10-27-2024 Note Date & VctxLvjdNohlfjje99-24-2591 Telephone encounter Note* Telephone Encounter - Jessi Yates - 10/27/2024 9:37 AM EDT Referred to [facility]. They have called patient twice. They cannot get hold of him. The referral is considered closed per [facility] office. 10/27/2024 [facility] HospitalAqtkvifdgd64-69-3686 Miscellaneous Notes* Telephone Encounter - Jessi Yates - 10/27/2024 9:37 AM EDT Referred to [facility]. They have called patient twice. They cannot get hold of him. The referral is considered closed per [facility] office. 10/27/2024 documented in this encounterSoutheast Missouri HospitalEyqcqudncx66-16-4251 Telephone encounter Note* Telephone Encounter - Cesia Suh - 08/18/2024 7:38 PM EDT LMOM TO CALL OFFICE TO SCHEDULE WITH JOSE ONEAL [facility] HospitalNfeoyocxby43-21-7431 Miscellaneous Notes* Telephone Encounter - Cesia Suh - 08/18/2024 7:38 PM EDT LMOM TO CALL OFFICE TO SCHEDULE WITH JOSE ONEAL documented in this encounterSoutheast Missouri HospitalVcqulfjvdm74-96-7673 History of Present illness Narrative* Catherine Ricardo NP - 08/04/2024 2:08 PM EDTAssociated Problem(s): Pain of left lower extremity No specific findings noted ?muscle cramps d/t glucose/elyte abnormals Does not appear to be DVT * TONY AVELAR - 08/04/2024 1:00 PM EDT Behind left leg- started a couple weeks ago, no hx on how. * Catherine Ricardo NP - 08/04/2024 1:00 PM EDT Images from the original note were not included. Vic Eason is a 34 y.o. male presents with chief complaint of Diabetes HPI: Never received call for scrotal US Diabetes He presents for his follow-up diabetic visit. He has type 2 diabetes mellitus. His disease course has been worsening. There are no hypoglycemic associated symptoms. Pertinent negatives for hypoglycemia include no dizziness, nervousness/anxiousness, seizures or tremors. Associated symptoms include po lydipsia and polyuria. Pertinent negatives for diabetes include [...] being taken. He does not see a medical historian.Eye exam is not current. SUBJECTIVE: MEDICATIONS: Current [...] feet frequently monitoring for open wounds , andalso recommend yearly eye exam. Pt should attempt to remain as physically active as chronic conditions allow, as well as trying to follow a diet low in carbohydrates, and simple sugars. Current meds: glipizide, metformin A1c: >15% No meds for about a month, then resumed no regularly Refer to exceptional children teacher [facility] in 4 weeks Relevant Medications glipiZIDE [...] Hemoglobin A1c Ambulatory referral to Diabetic Education * Catherine Ricardo NP - 08/04/2024 7:01 AM EDTAssociated Problem(s): Type 2 diabetes mellitus without complication, without long-term current useof insulin Check blood sugars daily, notify if <70 or >200. Take medications (pills or insulin) as directed. Monitor for s/s of hypoglycemia (sweaty, dizziness, nausea, vomiting, or shakiness). Watch for increase in thirst, urination, or appetite. Inspect feet frequently monitoring for open wounds , andalso recommend yearly eye exam. Pt should attempt to remain as physically active as chronic conditions allow, as well as trying to follow a diet low in carbohydrates, and simple sugars. Current meds: glipizide, metformin A1c: >15% No meds for about a month, then resumed no regularly Refer to exceptional children teacher Fu in 4 weeks * Catherine Ricardo NP - 08/04/2024 7:00 AM EDTAssociated Problem(s): Testicular pain, left Was ordered US in 01/20, to date still not completed Still w occassional pain Will re order documented in this encounterSoutheast Missouri HospitalHezkqdgmbj77-04-9564 Instructions* Patient Instructions* Catherine Ricardo NP - 08/04/2024 1:00 PM EDT Check blood sugars twice a day and record I will refer you Diabetic education Get labs done AJAY documented in this encounterSoutheast Missouri HospitalSowwkzweyi39-86-2723 History of Present illness Narrative* Ruby Gil NP - 01/13/2024 4:29 PM EDTAssociated Problem(s): Testicular pain, left Blood in semen X1 occurrence 2 weeks ago Has slight pain on L testicle Scrotal US ordered. * Ruby Gil NP - 01/13/2024 2:26 PM EDTAssociated Problem(s): Type 2 diabetes mellitus without complication, without long-term current useof insulin ([facility]) Most recent labs: hemoglobin A1C No episode [...] and starting injectables. Will discuss after labwork/ * Ruby Gil NP - 01/13/2024 2:00 PM EDT Images from the original note were not [...] Neurological: Negative for dizziness, tremors, syncope, weakness, light- headedness and headaches. Psychiatric/Behavioral: Negative for decreased concentration and suicidal ideas. The patient is notnervous/anxious. Hematological: Does not bruise/bleed easily. Endocrine: Negative [...] complication, without long-term current use of insulin ([facility]) -Primary Most recent labs: hemoglobin A1C No episode [...] 6.5 % otic solution documented in this encounterSoutheast Missouri HospitalDpvnuqgvoq04-06-2987 Instructions* Patient Instructions* Ruby Gil NP - 01/13/2024 2:00 PM EDT FASTING labs ordered. Nothing to eat or drink for 12 hours prior to blood draw. Water and black coffee ok. Start Debrox for ear wax. Referral sent to ENT- they will call you! documented in this encounterSoutheast Missouri HospitalDfgkitbbzp41-74-0284 NoteThe [place], [place] NAME: VIC EASON DATE OF : MEDICAL REC#: [id number] INFORMATION ARCHITECT: [address] [facility], TRANSADMIT DATE: 07/11/2021 00:31:00 INSTRUMENT LENS INSPECTOR DATE: 07/12/2021 01:00 DICTATING PHYSICIAN: PATRICIA ASHER DICTATION DATE: 07/11/2021 12:00 OPERATIVE NOTE PREOPERATIVE DIAGNOSIS: Dysphagia, food impaction. POSTOPERATIVE DIAGNOSIS: No evidence of food bolus or esophageal irritation. No hiatal hernia. No retained food within the stomach. PROCEDURE: EGD under anesthesia. SURGEON: Patricia Asher M.D. ANESTHESIA: General endotracheal. ESTIMATED BLOOD LOSS: [...] physician Electronically Authenticated and Edited by: Patricia Asher MD on 07/12/2021 07:51 AM EDT IFC Signed and Approved by: DR PATRICIA ASHER . 07/12/2021 07:51:00[facility]03-15-2022 NoteCONSULTATION CHIEF COMPLAINT: Dysphagia, possible food impaction. HISTORY [...] MEDICATIONS: Denies any medications, is on no cdlm-hrb-plyulne medications. ALLERGIES: Has no known drug allergies. [...] Informed consent was obtained. CC: Family physician [facility] Signed and Approved by: DR PATRICIA ASHER . 07/13/2021 16:21:00[facility] note* Diagnosis Type 2 diabetes mellitus without complication, without long-term current use of insulin (CMS/HCC)- Primary Testicular pain, left Unspecified disorder of male genital organs Blood in semen Hematospermia Wellness examination Cerumen debris on tympanic membrane of both ears documented in this encounter [facility] HealthcareEvaluation note* Diagnosis Type 2 diabetes mellitus without complication, without long-term current use of insulin (CMS/HCC) documented in this encounter [facility] HealthcareEvaluation note* Diagnosis Type 2 diabetes mellitus without complication, [...] left lower extremity documented in this encounter [facility] HealthcareEvaluation note* Diagnosis Type 2 diabetes mellitus without complication, [...] of insulin- Primary documented in this encounter [facility] HealthcareEvaluation note* Diagnosis Type 2 diabetes mellitus without complication, [...] genital organs Pain of left lower extremity Left varicocele- Primary Scrotal varices Testicular pain, left Unspecified disorder of male genital organs documented in this encounter [facility] HealthcareEvaluation note* Diagnosis Onset Date Resolution Status Admit Date Mixed hyperlipidemia acuteNovember 2024 2:56pmNon-compliant patientacuteNovember 2024 2:56pmType 2 diabetes mellitus without complication, without long-term current [facility] 2024 2:56pm [facility] Work Phone: Reason for referral (narrative)No reason for referral information availableOhiohealth Work Phone: Summary Purpose Family History No Family History Records FoundNo Family History Records FoundNo Family History Records Found Advance Directives Advance Directive Response Recorded Date/ Time Advance Directives No February 9:55am Chief Complaint and Reason for Visit Chief Complaint Admit Date med refills March 09, 2025 2:56pm Reason for Visit Admit Date Mixed hyperlipidemia March 09, 2025 2:56pm Non-compliant patient March 09 2:56pm Type 2 diabetes mellitus wit hout complication, without long-term current March 09, 2025 2:56pm Additional Source Comments (unrecognized sect ion and content) No Status Records FoundNo Status Records FoundNo Status Records Found INFORMATION SOURCE (unrecogn ized section and content) DATE CREATED AUTHOR 03/27/2022 [facility] DATE CREATED AUTHOR AUTHOR'S ORGANIZ ATION 08/05/2024 [facility] DATE CREATED AUTHOR AUTHOR'S ORGANIZ ATION 09/30/2024 [facility] Care Teams (unrecognized sec tion and content) Team MemberRelationshipSpecialtyStart DateEnd Date John Gar MD [address] [place] [address] [facility] - [facility]23 Ruby Gil NP [address] [place] [address] Nurse Pract[facility]12/25/23Team MemberRelationshipSpecialtyStart DateEnd Date John Gar MD [address] [place] [address] PCP - [facility]12/25/23 Ruby Gil NP [address] [place] [address] Nurse [facility]12/25/23Team MemberRelationshipSpecialtyStart DateEnd Date John Gar MD [address] [place] [address] PCP - [facility]12/25/23 Ruby Gil NP [address] [place] [address] Nurse [facility]12/25/23Team MemberRelationshipSpecialtyStart DateEnd Date John Gar MD [address] [place] [address] [facility] - [facility]12/25/23 Ruby Gil NP [address] [place] [address] [facility]12/25/23Team MemberRelationshipSpecialtyStart DateEnd Date John Gar MD [address] [place] [address] [facility] - [facility]12/25/23 Ruby Gil NP [address] [place] [address] [facility]12/25/23Team MemberRelationshipSpecialtyStart DateEnd Date John Gar MD [address] [place] [address] PCP - [facility]12/25/23 Ruby Gil NP [address] [place] [address] Nurse [facility]12/25/23Team MemberRelationshipSpecialtyStart DateEnd Date John Gar MD [address] [place] [address] [facility] - [facility]12/25/23 Ruby Gil, PAULA [address] [place] [address] Nurse [facility]12/25/23Team MemberRelationshipSpecialtyStart DateEnd Date John Gra MD [address] [place] [address] PCP - [facility]12/25/23 Ruby Gil NP [address] [place] [address] Nurse [facility]12/25/23Team MemberRelationshipSpecialtyStart DateEnd Date John Gar MD [address] [place] [address] PCP - [facility]12/25/23 Ruby Gil NP [address] [place] [address] Nurse [facility]12/25/23Team MemberRelationshipSpecialtyStart DateEnd Date John Gar MD [address] [place] [phone] PCP - [facility]12/25/23 Ruby Gil NP [address] [place] [address] Nurse [facility]12/25/23Team MemberRelationshipSpecialtyStart DateEnd Date Shaikh Avila MD PCP - GeneralInternal Medicine Shaikh Avila MD PCP - GeneralInternal Medicine05/22/ John Gar MD PCP - GeneralFamily Medicine12/25/23 Ruby Gil NP Nurse PractitionerFamily [facility]12/25/23 Team Status: Active Member Role/Relationship Status Dates LENNOX Crabtree Primary Care Provider Active Team Status: Inactive Member Role/Relationship Status Dates LENNOX Crabtree Primary Care Provider Active Start: March 09, 2025 End: March 09, 2025VIRGIL CrabtreeCAttending ProviderActiveStart: March 09, 2025 End: March 09, 2025 Reason for Visit (unrecogniz ed section and content) ReasonCommentsAnnual ExamRecently had blood in semen, some pain in groinReason Onset DateCommentsMed [id number] Goals (unrecognized section and content) Goals may be documented in a n alternate section FOR RECORDS PERTAINING TO PATIENTS WHO ARE [...] BE BASED ON THE PRIMARY CLINICAL RECORDS. [facility] [employer] provides no warranty or guarantee of the accuracy or completeness of information in this document.
[2025-04-02 09:13] LABS: Hematocrit 41.3 % (42.0-54.0); Hemoglobin 13.3 g/dL (14.0-18.0); Immature Granulocytes Abs Auto 0.01 10^3/uL (0.00-0.03); Immature Granulocytes Pct Auto 0.1 % (0.0-0.5); Lymphocytes Absolute Auto 3.1 10^3/uL (1.2-3.8); Mean Corpuscular HGB Conc 32.2 g/dL (29.9-35.2); Mean Corpuscular Hemoglobin 28.7 pg (25.9-34.0); Mean Corpuscular Volume 89.0 fL (80.0-94.0); Platelet Count 304 10^3/uL (150-450); Red Blood Count 4.64 10^6/uL (4.70-6.10); White Blood Count 8.9 10^3/uL (4.0-11.0)
[2025-04-02 09:27] LABS: Glucose Urine UA >=1000 mg/dL (NEGATIVE)
[2025-04-02 09:45] LABS: Cast Seen? NONE SEEN #/LPF (NONE SEEN); Crystals Seen? None Seen #/HPF (None Seen); Urine Culture Indicated NO
[2025-04-02 10:18] LABS: Microalbum Creatinine Ratio Ur 14.9 mg/g (0.0-29.9)
[2025-04-02 11:16] LABS: Anion Gap 10.2; Blood Urea Nitrogen 12.0 mg/dL (7.0-18.0); Calcium 9.1 mg/dL (8.5-10.1); Carbon Dioxide 30.7 mmol/L (21.0-32.0); Chloride 103 mmol/L (98-107); Estimated GFR (African America >60 (>=60 mL/min/1.73m^2); Estimated GFR (Non-African Ame >60 (>=60 mL/min/1.73m^2); Glucose 236 mg/dL (74-106); Potassium 3.9 mmol/L (3.5-5.1); Sodium 140 mmol/L (136-145)
[2025-04-02 11:17] LABS: Alanine Aminotransferase 31 U/L (16-63); Albumin Globulin Ratio 1.0; Albumin Level 4.0 g/dL (3.4-5.0); Alkaline Phosphatase 61 U/L (46-116); Aspartate Amino Transferase 12 U/L (15-37); Cholesterol 166 mg/dL (<=200); Globulin 4.2 g/dL; HDL Cholesterol 39 mg/dL (40-60); Thyroid Stimulating Hormone 5.082 uIU/mL (0.358-3.740); Total Protein 8.2 g/dL (6.4-8.2); Triglycerides 103 mg/dL (<=150); VLDL CHOLESTEROL 20.6 mg/dL
== END 2025-04-02 08:47 | disposition home or self-care (01) ==
LOC: LAB 08:48
PROVIDERS: PCP Nurse Practitioner; Visit Provider Nurse Practitioner
DX: E78.2 Mixed hyperlipidemia (principal); E11.9 Type 2 diabetes mellitus without complications
CPT/HCPCS: 36415; 80053; 80061; 81001; 82043; 82570; 84443; 85025